=== PATIENT | female | born 2000 | race Caucasian/White ===

== ENCOUNTER 2024-03-12 22:35 | Emergency (ER) | payer BC ==
--- OUTSIDE RECORDS SUMMARY | 2024-03-12 22:39 | XMS REPORT | Continuity of Care Document ---
Author Name Unknown Address [address] [facility] [place] [place] [address] [facility] thconnect Address [address] [facility] [place] [place] [address] Care Team Providers Care Slitter Scorer Cut Off Operator Name Role Phone PCP, PATIENT DOES NOT HAVE A Primary Care Physic fiona Unavailable LESVIA FOLEY Attending Clinician Unavailable Lesvia Foley MD Attending Clinician [phone] Doctor Unassigned, [place] Attending Clinician U Pierre Flores CRNA Attending Clinician [phone] Catalino Browning CRNA Attending Clinician + [phone] Ismael Zamarripa MD Attending Clinician [phone] Ultrasound, Adc Mf Attending Clinician UnavailAureliano Koenig MD Attending Clinician [phone], Adc Lab Attending Clinician Unavailable RADHA HIGHTOWER Attending Clinician Unavailabl e Pcp, Patient Does Not Have A Attending Clinician Lab, Adc Fam Pob I Attending Clinician Unavailab Constance Lewis Attending Clinician [phone] CONSTANCE HARPER Attending Clinician Unavailable LESVIA FOLEY Admitting Clinician Unavailable Lesvia Foley MD Admitting Clinician [phone] Payers Payer Name Policy Type Policy Number Effective Date Expirati on Date Source FORMERLY [facility] [id number] 2021 00:00:00 KASSANDRA ULLOA [id number] 2021-01-0 1 00:00:00 Problems Condition Name Condition Details Condition Category Status Onset Date Resolution Date Last Treatment Date Treating Clinician Comments Source (normal spontaneou s vaginal delivery) (normal spontaneou s vaginal delivery) Disease Active 8-19 00:00: 00 [facility] Labor and delivery, indication for care Labor and delivery, indication for care Disease Active 8-18 00:00: 00 [facility] Uterine contractio ns during Uterine contractio ns during Disease Active 818 00:00: 00 [facility] Labor and delivery, indication for care Labor and delivery, indication for care Disease Active 818 00:00: 00 [facility] Obesity (BMI 30-39.9) Obesity (BMI 30-39.9) Disease Active 7 00:00: 00 [facility] Supervisio n of high-risk with insufficie nt care in third trimester Supervisio n of high-risk with insufficie nt care in third trimester Disease Active 7 00:00: 00 [facility] 37 weeks gestation of 37 weeks gestation of Disease Active 7 00:00: 00 [facility] 31 weeks gestation of 31 weeks gestation of Disease Active 7 00:00: 00 [facility] 33 weeks gestation of 33 weeks gestation of Disease Active 7 00:00: 00 [facility] 36 weeks gestation of 36 weeks gestation of Disease Active 7 00:00: 00 [facility] Allergies, Adverse Reactions, Alerts Allergy Name Allergy Type Status Severity Reaction(s) Onset Date Inactive Date Treating Clinician Comments Source NO KNOWN ALLERGIE S Drug Class Active [facility] Social History Social Habit Start Date Stop Date Quantity Comments Source ASSERTION 2020-07-17 00:00:00 [facility] History of tobacco use Current smoker [facility] Exposure to SARS-CoV-2 (event) 2021-04-25 00:00:00 2021-05-25 13:57:00 Not sure [facility] Alcohol intake 2021-05-25 00:00:00 2021-05-25 00:00:00 Lifetime non-drinker (finding) [facility] History of Social function 2021-05-25 00:00:00 2021-05-25 00:00:00 [facility] Tobacco use and exposure 2021-03-23 00:00:00 2021-03-23 00:00:00 Former smokeless tobacco user [facility] Education 2021-03-23 00:00:00 2021-03-23 00:00:00 11 [facility] Sex Assigned At 2002 00:00:00 2000 00:00:00 [facility] Smoking Status Start Date Stop Date Source Unknown if ever smoked [facility] Ex-smoker 2021-03-23 00:00:00 2021-03-23 00:00:00 [facility] Never smoker [facility] Medications Ordered Medication Name Filled Medication Name Start Date Stop Date Current Medication? Ordering Clinician Indication Dosage Frequency Signature (SIG) Comments Components Source medroxyPROG ESTERone (DEPO-PROVE RA) syringe 150 mg 2020-08 21:30: 00 05-25 21:00 :00 No [id number] 150mg [facility] vit calc,iron,f olic ( VITAMIN ORAL) 04-22 16:22: 27 Yes Take by mouth. [facility] vit calc,iron,f olic ( VITAMIN ORAL) 03-26 03:48: 15 Yes Take by mouth. [facility] ibuprofen 600 mg tablet 03-25 00:00: 00 Yes [id number] 600mg Take 1 tablet by mouth every 6 (six) hours as needed (Pain). Take with food or milk. [facility] ibuprofen (IBU) tablet 600 mg 03-24 20:18: 23 Yes 600mg 600 mg, Oral, Q6HPRN, Starting Sun03/24/21 at 1518, Until Discontinu ed, Routine, Pain (scale 4-6) [facility] acetaminoph en (TYLENOL) tablet 650 mg 03-24 20:18: 23 Yes 650mg 650 mg, Oral, Q6HPRN, Starting Sun03/24/21 at 1518, Until Discontinu ed, Routine, Pain (scale 1-3) [facility] diphenhydrA MINE (BENADRYL) tablet 25 mg 03-24 20:18: 23 Yes 25mg 25 mg, Oral, Q6HPRN, Starting Sun03/24/21 at 1518, Until Discontinu ed, Routine, Sleep, Itching [facility] ondansetron (ZOFRAN (PF)) injection 4 mg 03-24 20:18: 23 Yes 4mg 4 mg, Slow IV Push, Q8HPRN, Starting Sun03/24/21 at 1518, Until Discontinu ed, Routine, Nausea and Vomiting (N/V) [facility] simethicone (GAS RELIEF (SIMETHICON E)) chewable tablet 160 mg 03-24 20:18: 23 Yes 160mg 160 mg, Oral, PC+HSPRN, Starting Sun03/24/21 at 1518, Until Discontinu ed, Routine, Gas [facility] magnesium hydroxide (MILK OF MAGNESIA) 400 mg/5 mL suspension 30 mL 03-24 20:18: 23 Yes 30mL 30 mL, Oral, QDAILYPRN, Starting Sun03/24/21 at 1518, Until Discontinu ed, Routine, Constipati on [facility] benzocaine- menthol (DERMOPLAST ) 20-0.5 % topical spray 03-24 20:18: 22 Yes Topical, PRN, Starting Sun03/24/21 at 1518, Until Discontinu ed, Routine, Perineum discomfort [facility] bupivacaine (preserv free) 0.5% (SENSORCAIN E MPF) 0.5 % (5 mg/mL) injection 03-24 18:30: 00 03-24 21:47 :57 No Epidural, ONCE INTRA PROCEDURE, Starting Cais 03/24/21 at 1330, Until Discontinu ed, Routine, Intra-op [facility] FENTanyl PF (SUBLIMAZE (PF)) injection 03-24 17:08: 00 03-24 21:47 :57 No Epidural, ONCE INTRA PROCEDURE, Starting Casi 03/24/21 at 1208, Until Discontinu ed, Routine, Intra-op [facility] bupivacaine (preserv free) (SENSORCAIN E MPF) 0.25 % (2.5 mg/mL) injection 03-24 17:08: 00 03-24 21:47 :57 No Epidural, ONCE INTRA PROCEDURE, Starting Casi 03/24/21 at 1208, Until Discontinu ed, Routine, Intra-op [facility] FENTanyl 2 mcg/mL + bupivacaine 0.125% in NS 250 mL epidural bag 03-24 13:56: 00 03-24 21:47 :57 No Intra-op [facility] lidocaine-e pinephrine (XYLOCAINE W/EPINEPHRI NE) 1.5 %-1:200,000 injection 03-24 13:54: 00 03-24 21:47 :57 No Intraderma l, ONCE INTRA PROCEDURE, Starting Casi 03/24/21 at 0854, Until Discontinu ed, Routine, Intra-op [facility] lidocaine 1% (XYLOCAINE) 100 mg/10 mL (1 %) injection 03-24 12:53: 00 03-24 21:47 :57 No Infiltrati on, ONCE INTRA PROCEDURE, Starting Casi 03/24/21 at 0753, Until Discontinu ed, Routine, Intra-op [facility] LR 1000 mL + oxytocin 20 units IV Solution 03-24 05:00: 00 03-24 20:20 :01 No 2mU/min at 6-120 mL/hr, IV Infusion, TITRATE, Starting Casi 03/24/21 at 0000, Until Casi 03/24/21 at 1520, TUSHAR [facility] D5W-LR IV infusion 1,000 mL 03-23 21:45: 00 03-24 20:20 :01 No 1000mL at 125 mL/hr, IV Infusion, CONTINUOUS , Starting Sun03/23/21 at 1645, Until Casi 03/24/21 at 1520, Routine [facility] FENTanyl PF (SUBLIMAZE (PF)) injection 100 mcg 03-23 21:42: 20 03-24 20:20 :01 No 100ug 100 mcg, Slow IV Push, Q1HPRN, Starting Sun03/23/21 at 1642, Until Casi 03/24/21 at 1520, Routine, Pain (scale 4-6), Pain (scale 7-10) [facility] lactated ringers IV infusion 500 mL 03-23 21:32: 14 03-24 20:20 :01 No 500mL at 999 mL/hr, 500 mL, IV Infusion, PRN - SEE INSTRUCTIO NS, Starting Sun03/23/21 at 1632, Until Casi 03/24/21 at 1520, Routine [facility] vit calc,iron,f olic ( VITAMIN ORAL) 03-23 21:11: 36 Yes Take by mouth. [facility] vit calc,iron,f olic ( VITAMIN ORAL) 03-23 18:07: 51 Yes Take by mouth. [facility] vit calc,iron,f olic ( VITAMIN ORAL) 02-08 18:35: 00 Yes Take by mouth. [facility] Immunizations Ordered Immunization Name Filled Immunization Name Date Status Comments Source MMR 2021-03-25 00:00:00 Completed [facility] Varicella (varivax)(chicken pox) 2021-03-25 00:00:00 Completed [facility] MMR 2021-03-25 00:00:00 Completed [facility] Varicella (varivax)(chicken pox) 2021-03-25 00:00:00 Completed [facility] MMR 2021-03-25 00:00:00 Completed [facility] Varicella (varivax)(chicken pox) 2021-03-25 00:00:00 Completed [facility] MMR 2021-03-25 00:00:00 Completed [facility] Varicella (varivax)(chicken pox) 2021-03-25 00:00:00 Completed [facility] MMR 2021-03-25 00:00:00 Completed [facility] Varicella (varivax)(chicken pox) 2021-03-25 00:00:00 Completed [facility] MMR 2021-03-25 00:00:00 Completed [facility] Varicella (varivax)(chicken pox) 2021-03-25 00:00:00 Completed [facility] 2021-03-25 00:00:00 Completed [facility] Varicella (varivax)(chicken pox) 2021-03-25 00:00:00 Completed [facility] MMR 2021-03-25 00:00:00 Completed [facility] Varicella (varivax)(chicken pox) 2021-03-25 00:00:00 Completed [facility] MMR 2021-03-25 00:00:00 Completed [facility] Varicella (varivax)(chicken pox) 2021-03-25 00:00:00 Completed [facility] TDAP 2021-02-22 00:00:00 Completed [facility] TDAP 2021-02-22 00:00:00 Completed [facility] TDAP 2021-02-22 00:00:00 Completed [facility] TDAP 2021-02-22 00:00:00 Completed [facility] TDAP 2021-02-22 00:00:00 Completed [facility] TDAP 2021-02-22 00:00:00 Completed [facility] TDAP 2021-02-22 00:00:00 Completed [facility] TDAP 2021-02-22 00:00:00 Completed [facility] TDAP 2021-02-22 00:00:00 Completed [facility] TDAP 2021-02-22 00:00:00 Completed [facility] TDAP 2021-02-22 00:00:00 Completed [facility] TDAP 2021-02-22 00:00:00 Completed [facility] TDAP 2021-02-22 00:00:00 Completed [facility] TDAP 2021-02-22 00:00:00 Completed [facility] TDAP 2021-02-22 00:00:00 Completed [facility] TDAP 2021-02-22 00:00:00 Completed [facility] TDAP 2021-02-22 00:00:00 Completed [facility] TDAP Unknown Completed [facility] MMR Unknown Completed [facility] Varicella (varivax)(chicken pox) Unknown Completed [facility] Vital Signs Vital Name Observation Time Observation Value Comments S ource Systolic blood pressure 2021-05-25 19:47:00 107 mm[Hg] [facility] Diastolic blood pressure 2021-05-25 19:47:00 69 mm[Hg] [facility] Heart rate 2021-05-25 19:47:00 84 /[facility] Body temperature 2021-05-25 19:47:00 36.78 Jenni [facility] Respiratory rate 2021-05-25 19:47:00 18 /min [facility] Body height 2021-05-25 19:47:00 160 cm [facility] Body weight 2021-05-25 19:47:00 85.276 kg [facility] BMI 2021-05-25 19:47:00 33.30 kg/m2 [facility] Body mass index (BMI) [Percentile] Per age and sex 2021-05-25 19:47:00 96.73 % [facility] Systolic blood pressure 2021-04-22 21:23:00 103 mm[Hg] [facility] Diastolic blood pressure 2021-04-22 21:23:00 69 mm[Hg] [facility] Heart rate 2021-04-22 21:23:00 103 /min Unive [facility] Body temperature 2021-04-22 21:23:00 36.83 Jenni [facility] Respiratory rate 2021-04-22 21:23:00 16 /min [facility] Body height 2021-04-22 21:23:00 160 cm [facility] Body weight 2021-04-22 21:23:00 82.192 kg [facility] BMI 2021-04-22 21:23:00 32.10 kg/m2 [facility] Body mass index (BMI) [Percentile] Per age and sex 2021-04-22 21:23:00 96.04 % [facility] Systolic blood pressure 2021-03-25 16:18:00 115 mm[Hg] [facility] Diastolic blood pressure 2021-03-25 16:18:00 64 mm[Hg] [facility] Heart rate 2021-03-25 16:18:00 77 /min [facility] Body temperature 2021-03-25 16:18:00 36.39 Jenni [facility] Respiratory rate 2021-03-25 16:18:00 16 /min [facility] Oxygen saturation in Arterial blood by Pulse oximetry 2021-03-25 16:18:00 99 /min [facility] Body height 2021-03-23 22:05:00 160 cm [facility] Body weight 2021-03-23 22:05:00 80.287 kg [facility] BMI 2021-03-23 22:05:00 31.35 kg/m2 [facility] Heart rate 2021-03-23 17:30:00 111 /min [facility] Oxygen saturation in Arterial blood by Pulse oximetry 2021-03-23 17:30:00 98 /min [facility] Respiratory rate 2021-03-23 16:15:00 18 /min [facility] Systolic blood pressure 2021-03-23 14:09:00 111 mm[Hg] [facility] Diastolic blood pressure 2021-03-23 14:09:00 68 mm[Hg] [facility] Body temperature 2021-03-23 14:09:00 36.67 Jenni [facility] Body height 2021-03-23 14:09:00 160 cm [facility] Body weight 2021-03-23 14:09:00 82.101 kg [facility] BMI 2021-03-23 14:09:00 32.06 kg/m2 [facility] Systolic blood pressure 2021-03-17 20:21:00 101 mm[Hg] [facility] Diastolic blood pressure 2021-03-17 20:21:00 66 mm[Hg] [facility] Heart rate 2021-03-17 20:21:00 97 /min Unive [facility] Body temperature 2021-03-17 20:21:00 36.83 Jenni [facility] Respiratory rate 2021-03-17 20:21:00 18 /min [facility] Body height 2021-03-17 20:21:00 160 cm [facility] Body weight 2021-03-17 20:21:00 82.192 kg [facility] BMI 2021-03-17 20:21:00 32.10 kg/m2 [facility] Systolic blood pressure 2021-02-22 13:30:00 110 mm[Hg] [facility] Diastolic blood pressure 2021-02-22 13:30:00 65 mm[Hg] [facility] Heart rate 2021-02-22 13:30:00 83 /min Unive [facility] Body temperature 2021-02-22 13:30:00 36.33 Jenni [facility] Respiratory rate 2021-02-22 13:30:00 16 /min [facility] Body height 2021-02-22 13:30:00 160 cm [facility] Body weight 2021-02-22 13:30:00 82.283 kg [facility] BMI 2021-02-22 13:30:00 32.13 kg/m2 [facility] Systolic blood pressure 2021-02-08 18:24:00 115 mm[Hg] [facility] Diastolic blood pressure 2021-02-08 18:24:00 67 mm[Hg] [facility] Heart rate 2021-02-08 18:24:00 82 /min Unive [facility] Body temperature 2021-02-08 18:24:00 36.72 Jenni [facility] Respiratory rate 2021-02-08 18:24:00 18 /min [facility] Body height 2021-02-08 18:24:00 160 cm [facility] Body weight 2021-02-08 18:24:00 80.287 kg [facility] BMI 2021-02-08 18:24:00 31.35 kg/m2 [facility] Procedures Procedure Date / Time Performed Performing Clinician Source CONSENT FOR CONTRACEPTION 2021-05-25 05:01:00 Doctor Unassigned, [place] [facility] POCT TEST 2021-05-25 00:00:00 Adum, Lesvia Lima [facility] DME/SUPPLY JUSTIFICATION 2021-04-07 05:01:00 Doc tor Unassigned, [place] [facility] CBC WITH DIFF 2021-03-25 08:52:00 Adum, Lesvia Arango [facility] CENTRAL NEURAXIAL BLOCK 2021-03-24 14:27:56 Catalino Browning [facility] CBC WITH DIFF 2021-03-23 21:54:00 [facility] HEPATITIS B SURFACE ANTIGEN 2021-03-23 21:54:00 Adum, Lesvia Lima [facility] ADC OR MELINDA ONLY - RPR 2021-03-23 21:54:00 Adum, Lesvia Lima [facility] HIV 1/2 AG-AB WITH REFLEX 2021-03-23 21:54:00 Adum, Lesvia Lima [facility] HB ABO GROUPING 2021-03-23 21:50:00 [facility]um, [facility] ([facility] NOW RAPID TEST[facility]) 2021-03-23 15:14:00 Adum, Lesvia Lima [facility] NOTICE OF PRIVACY PRACTICES 2021-03-23 14:00:37 Doctor Unassigned, [place] [facility] CONSENT/REFUSAL FOR DIAGNOSIS AND TREATMENT 2021-03-23 13:56:26 Doctor Unassigned, [place] [facility] POCT URINALYSIS W/O SPECIFIC GRAVITY 2021-03-17 20:25:00 Lesvia Foley [facility] DSU PRE-OP 2021-03-17 05:01:00 Doctor Unass igned, [place] [facility] POCT URINALYSIS W/O SPECIFIC GRAVITY 2021-02-22 13:30:00 Lesvia Foley [facility] TDAP VACCINE, >11 YRS, IM 2021-02-22 13:29:54 Lesvia Foley [facility] EXTERNAL PROVIDER RECORDS 2021-02-22 05:01:00 Doctor Unassigned, [place] [facility] ASSIGNMENT OF BENEFITS 2021-02-08 18:07:34 Docto r Unassigned, [place] [facility] POCT URINALYSIS W/O SPECIFIC GRAVITY 2021-02-08 00:00:00 Lesvia Foley [facility] Encounters Start Date/Time End Date/Time Encounter Type Admission Type Attending [facility] Care Department Encounter ID Source 2021-06-06 16:27:51 Outpatient X [facility] JAQUELINE [id number] [facility] 2021-06-06 16:21:14 Emergency [facility] [id number] [facility] 2024-04-01 08:00:00 2024-04-01 08:00:00 Outpatient R LESVIA FOLEY [facility] [id number] [facility] 2021-08-18 15:00:00 2021-08-18 15:00:00 Outpatient R [facility] [id number] [facility] 2021-08-17 15:00:00 2021-08-17 15:00:00 Outpatient R [facility] [id number] [facility] 2021-06-16 00:00:00 2021-06-16 00:00:00 Patient Secure Msg Lesvia Foley [facility] [id number] 350.1.13.10 4.2.7.2.686 [id number] [facility] 2021-05-25 13:57:39 2021-05-25 15:35:28 Routine Visit Adum, Lesvia Lima [facility] 1.20.114 350.1.13.10 4.2.7.2.686 [id number] [facility] 2021-05-25 14:15:00 2021-05-25 14:15:00 Outpatient R ADUM, LESVIA [facility] [id number] [facility] 2021-05-25 00:00:00 2021-05-25 00:00:00 Orders Only Doctor Unassigned, [place] [facility] 1.20.114 350.1.13.10 4.2.7.2.686 [id number] [facility] 2021-04-22 16:08:32 2021-04-22 16:38:27 Routine Visit Adum, Lesvia Lima [facility] 1.2.114 350.1.13.10 4.2.7.2.686 [id number] [facility] 2021-04-22 16:15:00 2021-04-22 16:15:00 Outpatient R ADUM, [facility] [id number] [facility] 2021-04-20 14:15:00 2021-04-20 14:15:00 Outpatient R ADUM, [facility] [id number] [facility] 2021-04-07 00:00:00 2021-04-07 00:00:00 Orders Only Doctor Unassigned, [place] [facility] 1.2.114 350.1.13.10 4.2.7.2.686 [id number] [facility] 2021-04-07 00:00:00 2021-04-07 00:00:00 [facility] 1.[facility].114 350.1.13.10 4.2.7.2.686 [id number] [facility] 2021-03-23 16:10:00 2021-03-25 19:40:00 Hospital Encounter Lesvia Foley [facility] [id number] 350.1.13.10 4.2.7.2.686 [id number] [facility] 2021-03-25 14:15:00 2021-03-25 14:15:00 Outpatient R LIZBETH [facility] [id number] [facility] 2021-03-24 20:02:20 2021-03-24 20:02:20 Anesthesia Event Pierre Hernández [facility] [id number] 350.1.13.10 4.2.7.2.686 [id number] [facility] 2021-03-24 07:51:00 2021-03-24 16:47:00 Anesthesia Event Catalino BrowningIsmael [facility] [id number] 350.1.13.10 4.2.7.2.686 [id number] [facility] 2021-03-23 09:01:00 2021-03-23 12:40:[address] [facility] [id number] 350.1.13.10 4.2.7.2.686 [id number] [facility] 2021-03-17 14:10:17 2021-03-17 16:00:49 Routine Visit Adsonali Lesvia [facility] 1.2.840.114 350.1.13.10 4.2.7.2.686 [id number] [facility] 2021-03-17 14:15:00 2021-03-17 14:15:00 Outpatient R LIZBETH [facility] [id number] [facility] 2021-03-17 00:00:00 2021-03-17 00:00:00 Orders Only Doctor Unassigned, [place] [facility] 1.840.114 350.1.13.10 4.2.7.2.686 [id number] [facility] 2021-03-10 15:17:09 2021-03-10 16:17:09 Finisher Operator Visit Ultrasound, Adc MfAureliano Stewart [facility] 1.840.114 350.1.13.10 4.2.7.2.686 [id number] [facility] 2021-03-10 14:30:00 2021-03-10 14:30:00 Outpatient P [facility] [id number] [facility] 2021-03-08 16:15:00 2021-03-08 16:15:00 Outpatient R ADLESVIA HERNANDEZ [facility] [id number] [facility] 2021-02-22 08:16:06 2021-02-22 08:51:56 Routine Visit Lesvia Foley [facility] Building 1..840.114 350.1.13.10 4.2.7.2.686 [id number] [facility] 2021-02-22 08:45:00 2021-02-22 08:45:00 Outpatient R ADLESVIA HERNANDEZ [facility] [id number] [facility] 2021-02-22 00:00:00 2021-02-22 00:00:00 Orders Only Doctor Unassigned, [place] [facility] 1.840.114 350.1.13.10 4.2.7.2.686 [id number] [facility] 2021-02-16 00:00:00 2021-02-16 00:00:00 Case Management AdLesvia hernandez [facility] 1.2.840.114 350.1.13.10 4.2.7.2.686 [id number] [facility] 2021-02-10 09:00:00 2021-02-10 09:00:00 Outpatient R ADUM, LESVIA [facility] [id number] [facility] 2021-02-08 14:16:18 2021-02-08 14:31:18 Finisher Operator Visit 2, Adc Lab Adum, Lesvia Lima [facility] 1.2.840.114 350.1.13.10 4.2.7.2.686 [id number] [facility] 2021-02-08 14:15:00 2021-02-08 14:15:00 Outpatient R ADUM, LESVIA [facility] [facility] [id number] [facility] 2021-02-08 13:08:24 2021-02-08 14:05:35 Initial Visit Adum, Lesvia Lima [facility] [id number] [facility] 2021-02-08 13:30:00 2021-02-08 13:30:00 Outpatient R ADUM, LESVIA [facility] [id number] [facility] 2021-02-08 13:30:00 2021-02-08 13:30:00 Outpatient R ADUM, [facility] [id number] [facility] 2021-02-08 00:00:00 2021-02-08 00:00:00 Orders Only Doctor Unassigned, [place] [facility] [id number] [facility] 2021-02-02 09:30:00 2021-02-02 09:30:00 Outpatient R ADUM, [facility] [id number] [facility] 2020-12-28 14:30:00 2020-12-28 14:30:00 Outpatient R RADHA HIGHTOWER [facility] [id number] [facility] 2020-11-29 14:00:00 2020-11-29 14:00:00 Outpatient R [facility] [id number] [facility] 2020-05-03 00:00:00 2020-05-03 00:00:00 Letter (Out) Pcp, Patient Does Not Have A [facility] .840.114 [id number] [id number] [facility] 2020-04-28 11:29:35 2020-04-28 11:49:35 Laboratory Only Lab, Adc Fam Pob I Constance Harper [facility] .840.114 [id number] [id number] [id number] [facility] 2020-04-28 11:20:00 2020-04-28 11:20:00 Outpatient R CONSTANCE HARPER [facility] [id number] [facility] Results Test Description Test Time Test Comments Results Result Co mments Source [facility] with [id number] 10:18:55* Test Item Value Reference Range Interpretation Comme nts WBC (test code = 6690-2) See_Comment H [Automated message] The system which generated this result transmitted reference range: 4.50 - 13.50 10*3/?L. The reference range was not used to interpret this result as normal/abnormal. RBC (test code = 789-8) See_Comment L [Automated message] The system which generated this result transmitted reference range: 4.10 - 5.10 10*6/?L. The reference range was not used to interpret this result as normal/abnormal. HGB (test code = 718-7) 10.8 g/dL 12.0-16.0 L HCT (test code = 4544-3) 32.8 % 36.0-45.0 L MCV (test code = 787-2) 83.2 fL 78.0-95.0 MCH (test code = 785-6) 27.4 pg 26.0-32.0 MCHC (test code = 786-4) 32.9 g/dL 32.0-36.0 RDW-SD (test code = 22810-6) 38.1 fL 38.5-49.0 L RDW-CV (test code = 788-0) 12.5 % 11.5-14.0 PLT (test code = 777-3) See_Comment [Automated message] The system which generated this result transmitted reference range: 135 - 361 10*3/?L. The reference range was not used to interpret this result as normal/abnormal. MPV (test code = 71668-3) 11.1 fL 9.4-13.3 NRBC/100 WBC (test code = 4273773978) See_Comment [Automated message] The system which generated this result transmitted reference range: 0.0 - 10.0 /100 WBCs. The reference range was not used to interpret this result as normal/abnormal. NRBC x10^3 (test code = 1651289099) <0.01 See_Comment [Automated message] The system which generated this result transmitted reference range: 10*3/?L. The reference range was not used to interpret this result as normal/abnormal. GRAN MAT (NEUT) % (test code = 770-8) 77.6 % IMM GRAN % (test code = 0962950277) 0.70 % LYMPH % (test code = 736-9) 12.5 % MONO % (test code = 5905-5) 8.1 % EOS % (test code = 713-8) 0.8 % BASO % (test code = 706-2) 0.3 % GRAN MAT x10^3(ANC) (test code = 6530616376) 10.96 10*3/uL 1.50-10.30 H IMM GRAN x10^3 (test code = 8220045062) 0.10 10*3/uL 0.00-0.06 H LYMPH x10^3 (test code = 731-0) 1.77 10*3/uL 0.70-7.40 MONO x10^3 (test code = 742-7) 1.14 10*3/uL 0.00-0.50 H EOS x10^3 (test code = 711-2) 0.12 10*3/uL 0.00-0.40 BASO x10^3 (test code = 704-7) 0.04 10*3/uL 0.00-0.10 Lab Interpretation (test code = 99951-0) Abnormal [facility] [id number] 14:27:56 Catalino Browning CRNA ? ? 03/24/2021 ?9:32 AM Central Neuraxial Block Performed by: Catalino Browning CRNAAuthorized by: Ismael Zamarripa MD Patient Location: OBStart Time: 03/24/2021 7:53 AMReason for Block: OB request, Patient request and Labor analgesiaStaff: ?Anesthesiologist: Ismael Zamarripa MD ?Resident/PROPERTY MAN: Catalino Browning CRNA ?Performed by: resident/PROPERTY MAN and anesthesiologistPreanesthetic Checklist: patient identified, IV checked, risks and benefits explained, monitors and equipmentchecked, timeout performed, ob surgical consent/approval, pre-op evaluation, surgical consent, sitemarked and anesthesia consentProcedure: ?Type of Neuraxial: Epidural ?Patient Position: sitting ?Prep: Betadine ? ?Monitoring: heart rate, continuous pulse ox and NIBP ?Location: lumbar (1-5) ?Lumbar: L2-L3 ?Approach: midline ? ?Technique: SERGE salineEpidural/Spinal Monument and/or Catheter: ?Epidural/Spinal Kit: BBraun ?Needle Type: Tuohy ?Needle Gauge: 17 G ?Needle Length: 3.5 in (8.89 cm) ?Needle Insertion Depth: 6 ?Catheter Type: side hole ? ?Catheter Size: 19 G ? ?Catheter at Skin Depth: 11 ?Number of Attempts: 4 ?Test Dose: lidocaine 1.5% with epinephrine 1-to-200,000 ? ?Dose: 3 cc ? ?Catheter Securement Method: Tegaderm and surgical tapeAssessment: ?Sensory Level: below T10 ?Block Outcome: pain improved ? ?Procedure Assessment: patient tolerated procedure well with no complicationsUnThe [facility] CampusHepatitis B Surface Antigen 2021-03-24 08:01:00* Test Item Value Reference Range Interpretation Comme nts HBsAg Semi-Quantitative (silvana t code = 5195-3) Negative Negative [facility]DA ONLY - [id number] 07:54:52* Test Item Value Reference Range Interpretation Comme nts RPR (Qualitative) (test code = 61622-6) Nonreactive Nonreactive Lab Interpretation (test cod e = 06381-5) Normal [facility]/2 AG-AB WITH [id number] 04:41:45* Test Item Value Reference Range Interpretation Comme nts HIV Semi-quantitative (test code = 58518-7) Negative Negative SHERMAN (test code = SHERMAN) Non-reactive for HIV-1 antigen and HIV-1/HIV-2 antibodies. ?No laboratory evidence of HIV infection. ?Repeat in 2-4 weeks if acute HIV infection is suspected. [facility] and Screen - ONCE [id number] 23:53:22 * Test Item Value Reference Range Interpretation Comme nts ABO & RH (test code = 20) B Positive Performed at [facility] Laboratory [facility] Blood [address] [place] [address] Free: [phone] No. [id number] IAT (test code = 1185) Negative Performed at [facility] Laboratory [facility] Blood [address] [place], [place] [address]Toll Free: [phone] No. [id number] [facility] with [id number] 22:39:59* Test Item Value Reference Range Interpretation Comme nts WBC (test code = 6690-2) See_Comment [Automated messa ge] The system which generated this result transmitted reference range: 4.50 - 13.50 10*3/?L. The reference range was not used to interpret this result as normal/abnormal. RBC (test code = 789-8) See_Comment [Automated messa ge] The system which generated this result transmitted reference range: 4.10 - 5.10 10*6/?L. The reference range was not used to interpret this result as normal/abnormal. HGB (test code = 718-7) 12.3 g/dL 12.0-16.0 HCT (test code = 4544-3) 36.6 % 36.0-45.0 MCV (test code = 787-2) 83.2 fL 78.0-95.0 MCH (test code = 785-6) 28.0 pg 26.0-32.0 MCHC (test code = 786-4) 33.6 g/dL 32.0-36.0 RDW-SD (test code = 31111-9) 38.4 fL 38.5-49.0 L RDW-CV (test code = 788-0) 12.6 % 11.5-14.0 PLT (test code = 777-3) See_Comment [Automated messa ge] The system which generated this result transmitted reference range: 135 - 361 10*3/?L. The reference range was not used to interpret this result as normal/abnormal. MPV (test code = 46534-8) 11.0 fL 9.4-13.3 NRBC/100 WBC (test code = 4515510361) See_Comment [Automated [employer] ssage] The system which generated this result transmitted reference range: 0.0 - 10.0 /100 WBCs. The reference range was not used to interpret this result as normal/abnormal. NRBC x10^3 (test code = 1248490671) <0.01 See_Comment [Automated [employer] ge] The system which generated this result transmitted reference range: 10*3/?L. The reference range was not used to interpret this result as normal/abnormal. GRAN MAT (NEUT) % (test code = 770-8) 80.9 % IMM GRAN % (test code = 0756739198) 0.50 % LYMPH % (test code = 736-9) 11.2 % MONO % (test code = 5905-5) 6.4 % EOS % (test code = 713-8) 0.7 % BASO % (test code = 706-2) 0.3 % GRAN MAT x10^3(ANC) (test code = 7529552011) 9.59 10*3/uL 1.50-10.30 IMM GRAN x10^3 (test code = 0026132872) 0.06 10*3/uL 0.00-0.06 LYMPH x10^3 (test code = 731-0) 1.33 10*3/uL 0.70-7.40 MONO x10^3 (test code = 742-7) 0.76 10*3/uL 0.00-0.50 H EOS x10^3 (test code = 711-2) 0.08 10*3/uL 0.00-0.40 BASO x10^3 (test code = 704-7) 0.03 10*3/uL 0.00-0.10 Lab Interpretation (test code = 44990-6) Abnormal [facility] (ID NOW RAPID TESTING)2021-03-23 15:49:48* Test Item Value Reference Range Interpretation Comme nts SARS-CoV-2 Rapid ID NOW (test code = 49033-9) Not Detected Not Detected SHERMAN (test code = SHERMAN) ID NOW COVID-19 As say is an isothermal nucleic acid amplification test intended for the qualitative detection of nucleic acid from SARS-CoV-2 viral RNA in nasopharyngeal (PATROL MAN) specimens. It is used under Emergency Use Authorization (EUA) by FDA. The limit of detection (LOD) of the assay is 125 Genome Equivalents/mL. A positive result is indicative of the presence of SARS-CoV-2 RNA. ?Clinical correlation with patient history and other diagnostic information is necessary to determine patient infection status. A negative (Not Detected) result does not preclude SARS-CoV-2 infection. In patients with clinical symptoms and other tests that are consistent with SARS-CoV-2 infection, negative results should be treated as presumptive negative and a new specimen should be tested with alternative PCR molecular test. Invalid: Please collect a new specimen for repeat patient testing if clinically indicated. Lab Interpretation (test code = 56118-3) Normal [facility] W/O SPECIFIC [id number] 20:25:00* Test Item Value Reference Range Interpretation Comme nts POCT PH U (test code = 3254) NEG 5-8 POCT U LEUK EST (test code = 3263) NEG Negative - N egative POCT U NIT (test code = 3262) NEG Negative - Negati ve POCT U PROT (test code = 3259) NEG Negative - Negat alexis POCT U GLU (test code = 3256) NEG Negative - Negati ve POCT U KETONE (test code = 3258) NEG Negative - Neg ative POCT U BLD (test code = 3257) NEG Negative - Negati ve Lab Interpretation (test cod e = 58352-2) Normal [facility] URINALYSIS W/O SPECIFIC [id number] 13:30:00* Test Item Value Reference Range Interpretation Comme nts POCT PH U (test code = 3254) n/a 5-8 POCT U LEUK EST (test code = 3263) n/a Negative - N egative POCT U NIT (test code = 3262) n/a Negative - Negati ve POCT U PROT (test code = 3259) neg Negative - Negat alexis POCT U GLU (test code = 3256) neg Negative - Negati ve POCT U KETONE (test code = 3258) n/a Negative - Neg ative POCT U BLD (test code = 3257) n/a Negative - Negati ve [facility] URINALYSIS W/O SPECIFIC [id number] 18:35:00* Test Item Value Reference Range Interpretation Comme nts POCT PH U (test code = 3254) N/A 5-8 POCT U LEUK EST (test code = 3263) N/A Negative - Negative POCT U NIT (test code = 3262) N/A Negative - Negati ve POCT U PROT (test code = 3259) Negative Negative - Negat alexis POCT U GLU (test code = 3256) Negative Negative - Negati ve POCT U KETONE (test code = 3258) N/A Negative - Neg ative POCT U BLD (test code = 3257) N/A Negative - Negati ve [facility] URINALYSIS W/O SPECIFIC [id number] 18:35:00* Test Item Value Reference Range Interpretation Comme nts POCT PH U (test code = 3254) N/A 5-8 POCT U LEUK EST (test code = 3263) N/A Negative - Negative POCT U NIT (test code = 3262) N/A Negative - Negati ve POCT U PROT (test code = 3259) Negative Negative - Negat alexis POCT U GLU (test code = 3253) Negative Negative - Negati ve POCT U KETONE (test code = 3258) N/A Negative - Neg ative POCT U BLD (test code = 3257) N/A Negative - Negati ve [facility]
[2024-03-12] MEDS ORDERED: ONDANSETRON 4 MG (ODT) TAB ONE (22:58)
[2024-03-12] MEDS ORDERED: IBUPROFEN 400 MG TAB ONE ×2 (22:58→22:59)
[2024-03-12] MEDS ORDERED: IBUPROFEN 200 MG TAB PO ONE (22:58)
[2024-03-12 23:35] LABS: SARS-CoV-2 Antigen CONTROL BLUE LINE VIS/BG OK; SARS-CoV-2 Antigen Rapid Res Negative (Negative)
[2024-03-13 00:27] LABS: Specific Gravity > 1.030 (1.005-1.030); Urine Bacteria >50 /HPF (<20); Urine Bilirubin NEGATIVE (Negative); Urine Blood Trace (Negative); Urine Clarity Extremely Turbid (Clear); Urine Color Yellow (Yellow); Urine Culture Reflex Order REFLEXED; Urine Glucose NEGATIVE (Negative); Urine Ketones 4+ (Negative); Urine Microscopic Reflex YN ORDER UMIC; Urine Mucus Slight /HPF (None Seen); Urine Nitrite NEGATIVE (Negative); Urine Protein 1+ (Negative); Urine RBC 21-50 /HPF (None Seen); Urine Urobilinogen 1+ (Normal); Urine WBC 20-50 /HPF (<5)
--- NOTE | 2024-03-13 00:31 | EDPHYS ---
Physician Documentation [facility] Name: Viridiana Navarrete Age: 23 yrs Sex: Female : 2000 Arrival Date: 03/12/2024 Time: 22:35 Bed 20 Private MD: ED Physician Kesha Ruiz HPI: 03/12 23:12 This 23 yrs old Female presents to ER via Ambulatory with complaints of Cough, kb Congestion, Flu Symptoms. 23:12 Pt is a 23 year old female who presents for cough, congestion, n/v/d, bodyaches, kb fatigue and malaise for 4 days. Denies fever. Historical: - Allergies: 22:49 No Known Allergies; cm10 - Home Meds: 22:49 None [Active]; cm10 - PMHx: 22:49 None; cm10 - PSHx: 22:49 None; cm10 - Immunization history:: Adult Immunizations up to date. - Infectious Disease History:: Denies. - Social history:: Smoking status: unknown. ROS: 23:11 Constitutional: As per HPI kb Exam: 23:11 Constitutional: This is a well developed, well nourished patient who is awake, alert, kb and in no acute distress. Head/Face: Normocephalic, atraumatic. Cardiovascular: Regular rate Respiratory: Respirations even and unlabored. No increased work of breathing. Talking in full sentences Abdomen/GI: Soft, non-tender. No distention Skin: Warm, dry with normal turgor. Normal color. MS/ Extremity: Pulses equal, no cyanosis. Neurovascular intact. Full, normal range of motion. Neuro: Awake and alert, GCS 15, oriented to person, place, time, and situation. Moves all extremities. Normal gait. 23:11 ENT: Posterior pharynx: Tonsils: bilaterally enlarged, with erythema, swelling, that is mild, erythema, that is moderate, Vital Signs: 22:47 BP 135 / 86; Pulse 109; Resp 18; Temp 99.6(O); Pulse Ox 99% on R/A; Weight 86.18 kg; cm10 Height 5 ft. 3 in. ; Pain 8/10; 03/13 00:49 BP 111 / 65; Pulse 99; Resp 19; Temp 97.3(TE); Pulse Ox 96% on R/A; Pain 2/10; tm6 03/12 22:47 Body Mass Index 33.66 (86.18 kg, 160.02 cm) cm10 03/12 22:47 Pain Scale: Adult cm10 03/13 00:49 Pain Scale: Adult tm6 MDM: 03/12 22:41 Patient medically screened. kb 23:11 Differential Diagnosis: Other flu, covid, uri, strep, viral gastroenteritis. Data kb reviewed: vital signs, nurses notes. 23:52 I considered the following discharge prescriptions or medication management in the emergency department I discussed and recommended Over The Counter medications, Antivirals: At this time, antivirals are not recommended. Counseling: I had a detailed discussion with the patient and/or guardian regarding the historical points, exam findings, and any diagnostic results supporting the discharge/admit diagnosis, lab results, the need for outpatient follow up, a family practitioner, to return to the emergency department if symptoms worsen or persist or if there are any questions or concerns that arise at home. 23:56 Test considered but Not performed: Labs: cbc, cmp considered, but pt has no abd pain or kb tenderness. . CT: ct abd considered but pt has no abd tenderness. . 03/12 22:42 Order name: Flu; Complete Time: 23:36 kb 03/12 22:42 Order name: Strep; Complete Time: 23:36 kb 03/12 22:42 Order name: SARS-COV-2 Antigen Rapid; Complete Time: 23:36 kb 03/12 23:37 Order name: Throat Culture [facility] 03/12 23:55 Order name: Urinalysis w/ reflexes; Complete Time: 00:29 kb 03/12 23:55 Order name: Test, Urine; Complete Time: 00:29 kb 03/13 00:30 Order name: Urine Culture [facility] 03/12 23:36 Order name: PO challenge; Complete Time: 00:07 kb Administered Medications: 23:07 Drug: Ondansetron PO 4 mg PO once Route: PO; tm6 23:07 Drug: Ibuprofen PO 600 mg PO once Route: PO; tm6 03/13 00:49 Drug: Amoxicillin-Clavulanate PO 875 mg PO once Route: PO; tm6 Disposition Summary: 03/13/24 00:30 Discharge Ordered Notes: Location: Home kb Condition: Stable kb Diagnosis - Viral infection, unspecified kb - UTI/ Urinary tract infection, site not specified kb Followup: kb - With: Emergency Department - When: As needed - Reason: Worsening of condition Followup: kb - With: Private Physician - When: 2 - 3 days - Reason: Recheck today's complaints, Continuance of care, Re-evaluation by your physician Discharge Instructions: - Discharge Summary Sheet kb - Viral Gastroenteritis, Adult, Itzd-pj-Ufvx kb - Urinary Tract Infection, Adult, Azoa-xo-Gmcb kb - Viral Respiratory Infection, Rzsr-Oq-Khok kb - Viral Illness, Adult kb Forms: - Medication Reconciliation Form kb - Antibiotic Education kb - Prescription Opioid Use kb - Patient Portal Instructions kb - Leadership Thank You Letter kb Prescriptions: - ondansetron 4 mg Oral Tablet,disintegrating - take 1 tablet ORAL route every 6 hours As needed; 12 tablet; Refills: 0, kb Product Selection Permitted - Augmentin 875-125 mg Oral Tablet - take 1 tablet ORAL route every 12 hours for 10 days; 20 tablet; Refills: 0, kb Product Selection Permitted Signatures: Dispatcher [employer] EDCA Frances Torres, BIOLOGICAL PHOTOGRAPHER-C SANCHO-Ivette Khan, RN RN cm10 Tahira Smith RN RN tm6 Corrections: (The following items were deleted from the chart) 00:30 08/07 23:52 I considered the following discharge prescriptions or medication management kb in the emergency department I discussed and recommended Over The Counter medications, Antibiotics: At this time antibiotics are not recommended, Antivirals: At this time, antivirals are not recommended, kb
--- NOTE | 2024-03-13 00:31 | ER ---
Nurse's Notes [facility] Name: Viridiana Navarrete Age: 23 yrs Sex: Female : 2000 Arrival Date: 03/12/2024 Time: 22:35 Bed 20 Private MD: Diagnosis: Viral infection, unspecified;UTI/ Urinary tract infection, site not specified Presentation: 03/12 22:47 Chief complaint: Patient states: Cough, congestion, body aches, nausea, vomiting and cm10 diarrhea onset Sunday. Pt reports taking OTC meds with no relief. Coronavirus screen: Client denies travel out of the [place] in the last 14 days. Ebola Screen: Patient denies travel to an Ebola-affected area in the 21 days before illness onset. No symptoms or risks identified at this time. Initial Sepsis Screen: Does the patient meet any 2 criteria? HR > 90 bpm. Does the patient have a suspected source of infection? No. Patient's initial sepsis screen is negative. Risk Assessment: Do you want to hurt yourself or someone else? Patient reports no desire to harm self or others. Onset of symptoms was March 09, 2024. 22:47 Method Of Arrival: Ambulatory cm10 22:47 Acuity: AMBROSIO 3 cm10 Triage Assessment: 22:49 General: Appears in no apparent distress. uncomfortable, Behavior is calm, cooperative. cm10 Neuro: No deficits noted. Level of Consciousness is awake, alert, obeys commands, Oriented to person, place, time, situation, Appropriate for age. Respiratory: No deficits noted. Airway is patent Respiratory effort is even, unlabored, Respiratory pattern is regular, symmetrical. Historical: - Allergies: 22:49 No Known Allergies; cm10 - Home Meds: 22:49 None [Active]; cm10 - PMHx: 22:49 None; cm10 - PSHx: 22:49 None; cm10 - Immunization history:: Adult Immunizations up to date. - Infectious Disease History:: Denies. - Social history:: Smoking status: unknown. Screenin:07 [facility] ED Fall Risk Assessment (Adult) History of falling in the last 3 months, tm6 including since admission No falls in past 3 months (0 pts) Confusion or Disorientation No (0 pts) Intoxicated or Sedated No (0 pts) Impaired Gait No (0 pts) Mobility Assist Device Used No (0 pt) Altered Elimination No (0 pt) Score/Fall Risk Level 0 - 2 = Low Risk Oriented to surroundings, Maintained a safe environment, Educated pt \T\ family on fall prevention, incl call for assistance when getting out of bed. Abuse screen: Denies threats or abuse. Denies injuries from another. Nutritional screening: No deficits noted. Tuberculosis screening: No symptoms or risk factors identified. Assessment: 23:07 General: Appears uncomfortable, Behavior is calm, cooperative. Pain: Complains of pain tm6 in body aches Pain does not radiate. Pain currently is 4 out of 10 on a pain scale. Quality of pain is described as aching, Pain began 1 day ago. Neuro: Level of Consciousness is awake, alert, obeys commands, Oriented to person, place, time, situation. Cardiovascular: No deficits noted. Patient's skin is warm and dry. Respiratory: Reports cough that is non-productive, Airway is patent Respiratory effort is even, unlabored, Respiratory pattern is regular, symmetrical, Breath sounds are clear. GI: Abdomen is round non-distended, Reports nausea, vomiting. : No signs and/or symptoms were reported regarding the genitourinary system. EENT: Throat is reddened has enlarged tonsils on right Reports difficulty swallowing nasal congestion pain in throat. Derm: No signs and/or symptoms reported regarding the dermatologic system. Musculoskeletal: No signs and/or symptoms reported regarding the musculoskeletal system. 03/13 00:23 Reassessment: Patient appears in no apparent distress at this time. Patient and/or tm6 family updated on plan of care and expected duration. Pain level reassessed. Patient is alert, oriented x 3, equal unlabored respirations, skin warm/dry/pink. Vital Signs: 03/12 22:47 BP 135 / 86; Pulse 109; Resp 18; Temp 99.6(O); Pulse Ox 99% on R/A; Weight 86.18 kg; cm10 Height 5 ft. 3 in. ; Pain 8/10; 03/13 00:49 BP 111 / 65; Pulse 99; Resp 19; Temp 97.3(TE); Pulse Ox 96% on R/A; Pain 2/10; tm6 03/12 22:47 Body Mass Index 33.66 (86.18 kg, 160.02 cm) cm10 03/12 22:47 Pain Scale: Adult cm10 03/13 00:49 Pain Scale: Adult tm6 ED Course: 03/12 22:40 Patient arrived in ED. gm2 22:41 Frances Torres [facility]NP-C [facility] kb 22:41 Kesha Ruiz MD is Attending Physician. kb 22:49 Triage completed. cm10 22:49 Arm band placed on Patient placed in an exam room, on a stretcher. cm10 22:55 Tahira Smith, RN is Primary Nurse. tm6 23:07 Patient has correct armband on for positive identification. Bed in low position. Call tm6 light in reach. Side rails up X 1. Provided Education on: use of call murillo. Client placed on continuous cardiac and pulse oximetry monitoring. NIBP monitoring applied. Pulse ox on. NIBP on. Door closed. Noise minimized. Warm blanket given. Pillow given. 23:07 Flu Sent. tm6 23:07 Strep Sent. tm6 23:07 SARS-COV-2 Antigen Rapid Sent. tm6 03/13 00:50 No provider procedures requiring assistance completed. Patient did not have IV access tm6 during this emergency room visit. Administered Medications: 03/12 23:07 Drug: Ondansetron PO 4 mg PO once Route: PO; tm6 23:07 Drug: Ibuprofen PO 600 mg PO once Route: PO; tm6 03/13 00:49 Drug: Amoxicillin-Clavulanate PO 875 mg PO once Route: PO; tm6 Medication: 03/12 23:07 VIS not applicable for this client. tm6 Outcome: 03/13 00:30 Discharge ordered by . kb 00:50 Discharged to home ambulatory, tm6 00:50 Condition: stable 00:50 Discharge instructions given to patient, Instructed on discharge instructions, follow up and referral plans. medication usage, Demonstrated understanding of instructions, follow-up care, medications, Prescriptions given X 2, 00:50 Patient left the ED. tm6 Signatures: Frances Torres FNP-C FNP-Ckb Martinez, Clarissa, RN RN Isabel Lee 2 Tahira Smith, ZA MENDENHALL tm6
[2024-03-13] MEDS ORDERED: AMOX/K CLAV 875 MG TAB ONE (00:44)
[2024-03-13 02:03] VITALS: BP 111/65; TEMP 97.3; O2SAT 96
== END 2024-03-13 00:50 | disposition home or self-care (01) ==
LOC: ER 22:35
DX: B34.9 Viral infection, unspecified (principal); N39.0 Urinary tract infection, site not specified; Z11.52 Encounter for screening for COVID-19
CPT/HCPCS: 87070; 87088; 81001; 87086; 36415; 81025; 87081; 87804 ×2; 99284; 87811; Q0162

== ENCOUNTER 2024-03-13 20:55 | Emergency (ER) | payer BC ==
--- OUTSIDE RECORDS SUMMARY | 2024-03-13 20:58 | XMS REPORT | Continuity of Care Document ---
Author Name Unknown Address [address] [facility] [place] [address] [facility] thconnect Address [address] [facility] [address] [place] [address] Care Team Providers Care Infant Babysitter Name Role Phone PCP, PATIENT DOES NOT HAVE A Primary Care Physic fiona Unavailable LESVIA FOLEY Attending Clinician Unavailable Lesvia Foley MD Attending Clinician [phone] Doctor Unassigned, Hurricane Attending Clinician U Pierre Flores CRNA Attending Clinician [phone] Catalino Browning CRNA Attending Clinician [phone] Ismael Zamarripa MD Attending Clinician [phone] Ultrasound, Adc Mf Attending Clinician UnavailAureliano Koenig MD Attending Clinician [phone], Adc Lab Attending Clinician Unavailable RADHA HIGHTOWER Attending Clinician Unavailabl e Pcp, Patient Does Not Have A Attending Clinician Lab, Adc Fam Pob I Attending Clinician Unavailab Constance Lewis Attending Clinician [phone] CONSTANCE HARPER Attending Clinician Unavailable LESVIA FOLEY Admitting Clinician Unavailable Lesvia Foley MD Admitting Clinician [phone] Payers Payer Name Policy Type Policy Number Effective Date Expirati on Date Source [place] [id number] 2021 00:00:00 KASSANDRA ULLOA [id number] 1 00:00:00 Problems Condition Name Condition Details Condition Category Status Onset Date Resolution Date Last Treatment Date Treating Clinician Comments Source (normal spontaneou s vaginal delivery) (normal spontaneou s vaginal delivery) Disease Active 8-19 00:00: 00 [facility] Labor and delivery, indication for care Labor and delivery, indication for care Disease Active 8-18 00:00: 00 [facility] Uterine contractio ns during Uterine contractio ns during Disease Active 818 00:00: 00 [facility] Labor and delivery, indication for care Labor and delivery, indication for care Disease Active 818 00:00: 00 [facility] Obesity (BMI 30-39.9) Obesity (BMI 30-39.9) Disease Active 02-08 00:00: 00 [facility] Supervisio n of high-risk with insufficie nt care in third trimester Supervisio n of high-risk with insufficie nt care in third trimester Disease Active 02-08 00:00: 00 [facility] 37 weeks gestation of 37 weeks gestation of Disease Active 02-08 00:00: 00 [facility] 31 weeks gestation of 31 weeks gestation of Disease Active 02-08 00:00: 00 [facility] 33 weeks gestation of 33 weeks gestation of Disease Active 02-08 00:00: 00 [facility] 36 weeks gestation of 36 weeks gestation of Disease Active 02-08 00:00: 00 [facility] Allergies, Adverse Reactions, Alerts Allergy Name Allergy Type Status Severity Reaction(s) Onset Date Inactive Date Treating Clinician Comments Source NO KNOWN ALLERGIE S Drug Class Active [facility] Social History Social Habit Start Date Stop Date Quantity Comments Source ASSERTION 2020-07-17 00:00:00 [facility] History of tobacco use Current smoker [facility] Sexual orientation U [facility] Exposure to SARS-CoV-2 (event) 2021-04-25 00:00:00 2021-05-25 13:57:00 Not sure [facility] Alcohol intake 2021-05-25 00:00:00 2021-05-25 00:00:00 Lifetime non-drinker (finding) [facility] History of Social function 2021-05-25 00:00:00 2021-05-25 00:00:00 [facility] Tobacco use and exposure 2021-03-23 00:00:00 2021-03-23 00:00:00 Former smokeless tobacco user [facility] Education 2021-03-23 00:00:00 2021-03-23 00:00:00 11 [facility] Sex Assigned At 2002 00:00:00 2000 00:00:00 [facility] Smoking Status Start Date Stop Date Source Unknown [facility] Ex-[facility]oker 2021-03-23 00:00:00 2021-03-23 00:00:[address] [facility] Never smoker [facility] Medications Ordered Medication Name Filled Medication Name Start Date Stop Date Current Medication? Ordering Clinician Indication Dosage Frequency Signature (SIG) Comments Components Source medroxyPROG ESTERone (DEPO-PROVE RA) syringe 150 mg 2020-08 21:30: 00 05-25 21:00 :00 No [id number] 150mg [facility] vit calc,iron,f olic ( VITAMIN ORAL) 04-22 16:22: 27 Yes Take by mouth. [facility] vit calc,iron,f olic ( VITAMIN ORAL) 03-26 03:48: 15 Yes Take by mouth. [facility] ibuprofen 600 mg tablet 03-25 00:00: 00 Yes [id number] 600mg Take 1 tablet by mouth every 6 (six) hours as needed (Pain). Take with food or milk. [facility] ibuprofen (IBU) tablet 600 mg 03-24 20:18: 23 Yes 600mg 600 mg, Oral, Q6HPRN, Starting Sun03/24/21 at 1518, Until Discontinu ed, Routine, Pain (scale 4-6) [facility] acetaminoph en (TYLENOL) tablet 650 mg 03-24 20:18: 23 Yes 650mg 650 mg, Oral, Q6HPRN, Starting Sun03/24/21 at 1518, Until Discontinu ed, Routine, Pain (scale 1-3) [facility] diphenhydrA MINE (BENADRYL) tablet 25 mg 03-24 20:18: 23 Yes 25mg 25 mg, Oral, Q6HPRN, Starting Sun03/24/21 at 1518, Until Discontinu ed, Routine, Sleep, Itching [facility] ondansetron (ZOFRAN (PF)) injection 4 mg 03-24 20:18: 23 Yes 4mg 4 mg, Slow IV Push, Q8HPRN, Starting Sun03/24/21 at 1518, Until Discontinu ed, Routine, Nausea and Vomiting (N/V) [facility] simethicone (GAS RELIEF (SIMETHICON E)) chewable tablet 160 mg 03-24 20:18: 23 Yes 160mg 160 mg, Oral, PC+HSPRN, Starting Sun03/24/21 at 1518, Until Discontinu ed, Routine, Gas [facility] magnesium hydroxide (MILK OF MAGNESIA) 400 mg/5 mL suspension 30 mL 03-24 20:18: 23 Yes 30mL 30 mL, Oral, QDAILYPRN, Starting Sun03/24/21 at 1518, Until Discontinu ed, Routine, Constipati on [facility] benzocaine- menthol (DERMOPLAST ) 20-0.5 % topical spray 03-24 20:18: 22 Yes Topical, PRN, Starting Sun03/24/21 at 1518, Until Discontinu ed, Routine, Perineum discomfort [facility] bupivacaine (preserv free) 0.5% (SENSORCAIN E MPF) 0.5 % (5 mg/mL) injection 03-24 18:30: 00 03-24 21:47 :57 No Epidural, ONCE INTRA PROCEDURE, Starting Casi 03/24/21 at 1330, Until Discontinu ed, Routine, Intra-op [facility] FENTanyl PF (SUBLIMAZE (PF)) injection 03-24 17:08: 00 03-24 21:47 :57 No Epidural, ONCE INTRA PROCEDURE, Starting Casi 03/24/21 at 1208, Until Discontinu ed, Routine, Intra-op [facility] bupivacaine (preserv free) (SENSORCAIN E MPF) 0.25 % (2.5 mg/mL) injection 03-24 17:08: 00 03-24 21:47 :57 No Epidural, ONCE INTRA PROCEDURE, Starting Casi 03/24/21 at 1208, Until Discontinu ed, Routine, Intra-op [facility] FENTanyl 2 mcg/mL + bupivacaine 0.125% in NS 250 mL epidural bag 03-24 13:56: 00 03-24 21:47 :57 No Intra-op [facility] lidocaine-e pinephrine (XYLOCAINE W/EPINEPHRI NE) 1.5 %-1:200,000 injection 03-24 13:54: 00 03-24 21:47 :57 No Intraderma l, ONCE INTRA PROCEDURE, Starting Casi 03/24/21 at 0854, Until Discontinu ed, Routine, Intra-op [facility] lidocaine 1% (XYLOCAINE) 100 mg/10 mL (1 %) injection 03-24 12:53: 00 03-24 21:47 :57 No Infiltrati on, ONCE INTRA PROCEDURE, Starting Casi 03/24/21 at 0753, Until Discontinu ed, Routine, Intra-op [facility] LR 1000 mL + oxytocin 20 units IV Solution 03-24 05:00: 00 03-24 20:20 :01 No 2mU/min at 6-120 mL/hr, IV Infusion, TITRATE, Starting Casi 03/24/21 at 0000, Until Casi 8/19/21 at 1520, TUSHAR [facility] D5W-LR IV infusion 1,000 mL 03-23 21:45: 00 03-24 20:20 :01 No 1000mL at 125 mL/hr, IV Infusion, CONTINUOUS , Starting Sun03/23/21 at 1645, Until Sun03/24/21 at 1520, Routine [facility] FENTanyl PF (SUBLIMAZE (PF)) injection 100 mcg 03-23 21:42: 20 03-24 20:20 :01 No 100ug 100 mcg, Slow IV Push, Q1HPRN, Starting Sun03/23/21 at 1642, Until Sun03/24/21 at 1520, Routine, Pain (scale 4-6), Pain (scale 7-10) [facility] lactated ringers IV infusion 500 mL 03-23 21:32: 14 03-24 20:20 :01 No 500mL at 999 mL/hr, 500 mL, IV Infusion, PRN - SEE INSTRUCTIO NS, Starting Sun03/23/21 at 1632, Until Sun03/24/21 at 1520, Routine [facility] vit calc,iron,f olic ( VITAMIN ORAL) 03-23 21:11: 36 Yes Take by mouth. [facility] vit calc,iron,f olic ( VITAMIN ORAL) 03-23 18:07: 51 Yes Take by mouth. [facility] vit calc,iron,f olic ( VITAMIN ORAL) 02-08 18:35: 00 Yes Take by mouth. [facility] Immunizations Ordered Immunization Name Filled Immunization Name Date Status Comments Source MMR 2021-03-25 00:00:00 Completed [facility] Varicella (varivax)(chicken pox) 2021-03-25 00:00:00 Completed [facility] MMR 2021-03-25 00:00:00 Completed [facility] Varicella (varivax)(chicken pox) 2021-03-25 00:00:00 Completed [facility] MMR 2021-03-25 00:00:00 Completed [facility] Varicella (varivax)(chicken pox) 2021-03-25 00:00:00 Completed [facility] MMR 2021-03-25 00:00:00 Completed [facility] Varicella (varivax)(chicken pox) 2021-03-25 00:00:00 Completed [facility] MMR 2021-03-25 00:00:00 Completed [facility] Varicella (varivax)(chicken pox) 2021-03-25 00:00:00 Completed [facility] MMR 2021-03-25 00:00:00 Completed [facility] Varicella (varivax)(chicken pox) 2021-03-25 00:00:00 Completed [facility] 2021-03-25 00:00:00 Completed [facility] Varicella (varivax)(chicken pox) 2021-03-25 00:00:00 Completed [facility] 2021-03-25 00:00:00 Completed [facility] Varicella (varivax)(chicken pox) 2021-03-25 00:00:00 Completed [facility] MMR 2021-03-25 00:00:00 Completed [facility] Varicella (varivax)(chicken pox) 2021-03-25 00:00:00 Completed [facility] TDAP 2021-02-22 00:00:00 Completed [facility] TDAP 2021-02-22 00:00:00 Completed [facility] TDAP 2021-02-22 00:00:00 Completed [facility] TDAP 2021-02-22 00:00:00 Completed [facility] TDAP 2021-02-22 00:00:00 Completed [facility] TDAP 2021-02-22 00:00:00 Completed [facility] TDAP 2021-02-22 00:00:00 Completed [facility] TDAP 2021-02-22 00:00:00 Completed [facility] TDAP 2021-02-22 00:00:00 Completed [facility] TDAP 2021-02-22 00:00:00 Completed [facility] TDAP 2021-02-22 00:00:00 Completed [facility] TDAP 2021-02-22 00:00:00 Completed [facility] TDAP 2021-02-22 00:00:00 Completed [facility] TDAP 2021-02-22 00:00:00 Completed [facility] TDAP 2021-02-22 00:00:00 Completed [facility] TDAP 2021-02-22 00:00:00 Completed [facility] TDAP 2021-02-22 00:00:00 Completed [facility] TDAP Unknown Completed [facility] MMR Unknown Completed [facility] Varicella (varivax)(chicken pox) Unknown Completed [facility] Vital Signs Vital Name Observation Time Observation Value Comments S ource Systolic blood pressure 2021-05-25 19:47:00 107 mm[Hg] [facility] Diastolic blood pressure 2021-05-25 19:47:00 69 mm[Hg] [facility] Heart rate 2021-05-25 19:47:00 84 /min [facility] Body temperature 2021-05-25 19:47:00 36.78 Jenni [facility] Respiratory rate 2021-05-25 19:47:00 18 /min [facility] Body height 2021-05-25 19:47:00 160 cm [facility] Body weight 2021-05-25 19:47:00 85.276 kg [facility] BMI 2021-05-25 19:47:00 33.30 kg/m2 [facility] Body mass index (BMI) [Percentile] Per age and sex 2021-05-25 19:47:00 96.73 % [facility] Systolic blood pressure 2021-04-22 21:23:00 103 mm[Hg] [facility] Diastolic blood pressure 2021-04-22 21:23:00 69 mm[Hg] [facility] Heart rate 2021-04-22 21:23:00 103 /min [facility] Body temperature 2021-04-22 21:23:00 36.83 Jenni [facility] Respiratory rate 2021-04-22 21:23:00 16 /min [facility] Body height 2021-04-22 21:23:00 160 cm [facility] Body weight 2021-04-22 21:23:00 82.192 kg [facility] BMI 2021-04-22 21:23:00 32.10 kg/m2 [facility] Body mass index (BMI) [Percentile] Per age and sex 2021-04-22 21:23:00 96.04 % [facility] Systolic blood pressure 2021-03-25 16:18:00 115 mm[Hg] [facility] Diastolic blood pressure 2021-03-25 16:18:00 64 mm[Hg] [facility] Heart rate 2021-03-25 16:18:00 77 /min [facility] Body temperature 2021-03-25 16:18:00 36.39 Jenni [facility] Respiratory rate 2021-03-25 16:18:00 16 /min [facility] Oxygen saturation in Arterial blood by Pulse oximetry 2021-03-25 16:18:00 99 /min [facility] Body height 2021-03-23 22:05:00 160 cm [facility] Body weight 2021-03-23 22:05:00 80.287 kg [facility] BMI 2021-03-23 22:05:00 31.35 kg/m2 [facility] Heart rate 2021-03-23 17:30:00 111 /min [facility] Oxygen saturation in Arterial blood by Pulse oximetry 2021-03-23 17:30:00 98 /min [facility] Respiratory rate 2021-03-23 16:15:00 18 /min [facility] Systolic blood pressure 2021-03-23 14:09:00 111 mm[Hg] [facility] Diastolic blood pressure 2021-03-23 14:09:00 68 mm[Hg] [facility] Body temperature 2021-03-23 14:09:00 36.67 Jenni [facility] Body height 2021-03-23 14:09:00 160 cm [facility] Body weight 2021-03-23 14:09:00 82.101 kg [facility] BMI 2021-03-23 14:09:00 32.06 kg/m2 [facility] Systolic blood pressure 2021-03-17 20:21:00 101 mm[Hg] [facility] Diastolic blood pressure 2021-03-17 20:21:00 66 mm[Hg] [facility] Heart rate 2021-03-17 20:21:00 97 /min [facility] Body temperature 2021-03-17 20:21:00 36.83 Jenni [facility] Respiratory rate 2021-03-17 20:21:00 18 /min [facility] Body height 2021-03-17 20:21:00 160 cm [facility] Body weight 2021-03-17 20:21:00 82.192 kg [facility] BMI 2021-03-17 20:21:00 32.10 kg/m2 [facility] Systolic blood pressure 2021-02-22 13:30:00 110 mm[Hg] [facility] Diastolic blood pressure 2021-02-22 13:30:00 65 mm[Hg] [facility] Heart rate 2021-02-22 13:30:00 83 /min [facility] Body temperature 2021-02-22 13:30:00 36.33 Jenni [facility] Respiratory rate 2021-02-22 13:30:00 16 /min [facility] Body height 2021-02-22 13:30:00 160 cm [facility] Body weight 2021-02-22 13:30:00 82.283 kg [facility] BMI 2021-02-22 13:30:00 32.13 kg/m2 [facility] Systolic blood pressure 2021-02-08 18:24:00 115 mm[Hg] [facility] Diastolic blood pressure 2021-02-08 18:24:00 67 mm[Hg] [facility] Heart rate 2021-02-08 18:24:00 82 /min [facility] Body temperature 2021-02-08 18:24:00 36.72 Jenni [facility] Respiratory rate 2021-02-08 18:24:00 18 /min [facility] Body height 2021-02-08 18:24:00 160 cm [facility] Body weight 2021-02-08 18:24:00 80.287 kg [facility] BMI 2021-02-08 18:24:00 31.35 kg/m2 [facility] Procedures Procedure Date / Time Performed Performing Clinician Source CONSENT FOR CONTRACEPTION 2021-05-25 05:01:00 Doctor Unassigned, Hurricane [facility] POCT TEST 2021-05-25 00:00:00 Adum, Lesvia Lima [facility] DME/SUPPLY JUSTIFICATION 2021-04-07 05:01:00 Doc tor Unassigned, Hurricane [facility] CBC WITH DIFF 2021-03-25 08:52:00 Adum, Lesvia Arango [facility] CENTRAL NEURAXIAL BLOCK 2021-03-24 14:27:56 Catalino Browning [facility] CBC WITH DIFF 2021-03-23 21:54:00 Adum, Lesvia Arango [facility] HEPATITIS B SURFACE ANTIGEN 2021-03-23 21:54:00 Adum, Lesvia Lima [facility] ADC OR MELINDA ONLY - RPR 2021-03-23 21:54:00 Adum, Lesvia Lima [facility] HIV 1/2 AG-AB WITH REFLEX 2021-03-23 21:54:00 Adum, Lesvia Lima [facility] HB ABO GROUPING 2021-03-23 21:50:00 [facility] (ID NOW RAPID TESTING) 2021-03-23 15:14:00 Adum, Lesvia Lima [facility] NOTICE OF PRIVACY PRACTICES 2021-03-23 14:00:37 Doctor Unassigned, Hurricane [facility] CONSENT/REFUSAL FOR DIAGNOSIS AND TREATMENT 2021-03-23 13:56:26 Doctor Unassigned, Hurricane [facility] POCT URINALYSIS W/O SPECIFIC GRAVITY 2021-03-17 20:25:00 Lesvia Foley [facility] DSU PRE-OP 2021-03-17 05:01:00 Doctor Unass igned, Hurricane [facility] POCT URINALYSIS W/O SPECIFIC GRAVITY 2021-02-22 13:30:00 Lesvia Foley [facility] TDAP VACCINE, >11 YRS, IM 2021-02-22 13:29:54 Lesvia Foley [facility] EXTERNAL PROVIDER RECORDS 2021-02-22 05:01:00 Doctor Unassigned, Hurricane [facility] ASSIGNMENT OF BENEFITS 2021-02-08 18:07:34 Docto r Unassigned, Hurricane [facility] POCT URINALYSIS W/O SPECIFIC GRAVITY 2021-02-08 00:00:00 Lesvia Foley [facility] Encounters Start Date/Time End Date/Time Encounter Type Admission Type Attending [facility] Care Facility Care Department Encounter ID Source 2021-06-06 16:27:51 Outpatient X [facility] JAQUELINE [id number] [facility] 2021-06-06 16:21:14 Emergency [facility] [id number] [facility] 2024-04-01 08:00:00 2024-04-01 08:00:00 Outpatient R LESVIA FOLEY [facility] [id number] [facility] 2021-08-18 15:00:00 2021-08-18 15:00:00 Outpatient R [facility] [id number] [facility] 2021-08-17 15:00:00 2021-08-17 15:00:00 Outpatient R [facility] [id number] [facility] 2021-06-16 00:00:00 2021-06-16 00:00:00 Patient Secure Msg [facility] [id number] 350.1.13.10 4.2.7.2.686 [id number] [facility] 2021-05-25 13:57:39 2021-05-25 15:35:28 Routine Visit Adum, Lesvia Lima [facility] 1.840.114 350.1.13.10 4.2.7.2.686 [id number] [facility] 2021-05-25 14:15:00 2021-05-25 14:15:00 [id number] 2021-05-25 00:00:00 2021-05-25 00:00:00 Orders Only Doctor Unassigned, Hurricane [facility] 1.84.114 350.1.13.10 4.2.7.2.686 [id number] [facility] 2021-04-22 16:08:32 2021-04-22 16:38:27 Routine Visit Adum, Lesvia [facility] 1.840.114 350.1.13.10 4.2.7.2.686 [id number] [facility] 2021-04-22 16:15:00 2021-04-22 16:15:00 Outpatient R ADUM, [facility] [id number] [facility] 2021-04-20 14:15:00 2021-04-20 14:15:00 Outpatient R ADUM, [facility] [id number] [facility] 2021-04-07 00:00:00 2021-04-07 00:00:00 Orders Only Doctor Unassigned, Hurricane [facility] 1.84.114 350.1.13.10 4.2.7.2.686 [id number] [facility] 2021-04-07 00:00:00 2021-04-07 00:00:00 Case Management Adum, [facility] 1.84.114 350.1.13.10 4.2.7.2.686 [id number] [facility] 2021-03-23 16:10:00 2021-03-25 19:40:00 Hospital Encounter AdLesvia lyon [facility] 1.2.840.114 350.1.13.10 4.2.7.2.686 [id number] [facility] 2021-03-25 14:15:00 2021-03-25 14:15:00 Outpatient R ADMARY [facility] [id number] [facility] 2021-03-24 20:02:20 2021-03-24 20:02:20 Anesthesia Event Pierre Hernández [facility] 1.2.840.114 350.1.13.10 4.2.7.2.686 [id number] [facility] 2021-03-24 07:51:00 2021-03-24 16:47:00 Anesthesia Event Catalino Browning [facility] 1.2.840.114 350.1.13.10 4.2.7.2.686 [id number] [facility] 2021-03-23 09:01:00 2021-03-23 12:40:00 Emergency Admary [facility] 1.2.840.114 350.1.13.10 4.2.7.2.686 [id number] [facility] 2021-03-17 14:10:17 2021-03-17 16:00:49 Routine Visit Admary [facility] 1.2.840.114 350.1.13.10 4.2.7.2.686 [id number] [facility] 2021-03-17 14:15:00 2021-03-17 14:15:00 Outpatient R ADUM, LESVIA [facility] [id number] [facility] 2021-03-17 00:00:00 2021-03-17 00:00:00 Orders Only Doctor Unassigned, Hurricane [facility] 1.20.114 350.1.13.10 4.2.7.2.686 [id number] [facility] 2021-03-10 15:17:09 2021-03-10 16:17:09 Roll Mechanic Visit Ultrasound, Adc Mfm Thiago, Aureliano F [facility] 1.84.114 350.1.13.10 4.2.7.2.686 [id number] [facility] 2021-03-10 14:30:00 2021-03-10 14:30:00 Outpatient P [facility] [id number] [facility] 2021-03-08 16:15:00 2021-03-08 16:15:00 Outpatient R ADUM, [facility] [id number] [facility] 2021-02-22 08:16:06 2021-02-22 08:51:56 Routine Visit Jaylenmary Lesvia Clarence [facility] 1.2840.114 350.1.13.10 4.2.7.2.686 [id number] [facility] 2021-02-22 08:45:00 2021-02-22 08:45:00 Outpatient R ADUM, [facility] [id number] [facility] 2021-02-22 00:00:00 2021-02-22 00:00:00 Orders Only Doctor Unassigned, Hurricane [facility] 1.284.114 350.1.13.10 4.2.7.2.686 [id number] [facility] 2021-02-16 00:00:00 2021-02-16 00:00:00 Case Management Adum, Lesvia Lima [facility] 1.2.840.114 350.1.13.10 4.2.7.2.686 [id number] [facility] 2021-02-10 09:00:00 2021-02-10 09:00:00 Outpatient R ADUM, LESVIA [facility] [id number] [facility] 2021-02-08 14:16:18 2021-02-08 14:31:18 Roll Mechanic Visit 2, Adc Lab Adum, Lesvia Lima [facility] 1.2.840.114 350.1.13.10 4.2.7.2.686 [id number] [facility] 2021-02-08 14:15:00 2021-02-08 14:15:00 Outpatient R ADUM, LESVIA [facility] [id number] [facility] 2021-02-08 13:08:24 2021-02-08 14:05:35 Initial Visit Adum, Lesvia Lima [facility] 1.2.840.114 350.1.13.10 4.2.7.2.686 [id number] [facility] 2021-02-08 13:30:00 2021-02-08 13:30:00 Outpatient R ADUM, LESVIA [facility] [id number] [facility] 2021-02-08 13:30:00 2021-02-08 13:30:00 Outpatient R ADUM, [facility] [id number] [facility] 2021-02-08 00:00:00 2021-02-08 00:00:00 Orders Only Doctor Unassigned, Hurricane [facility] 1.2.840.114 350.1.13.10 4.2.7.2.686 [id number] [facility] 2021-02-02 09:30:00 2021-02-02 09:30:00 Outpatient R LESVIA FOLEY [facility] [id number] [facility] 2020-12-28 14:30:00 2020-12-28 14:30:00 Outpatient R RADHA HIGHTOWER [facility] [id number] [facility] 2020-11-29 14:00:00 2020-11-29 14:00:00 Outpatient R [facility] [id number] [facility] 2020-05-03 00:00:00 2020-05-03 00:00:00 Letter (Out) Pcp, Patient Does Not Have A [facility] [id number] [id number] [facility] 2020-04-28 11:29:35 2020-04-28 11:49:35 Laboratory Only Lab, Adc Fam Pob I Constance Harper [facility] 1..840.114 [id number] [facility] 2020-04-28 11:20:00 2020-04-28 11:20:00 Outpatient R CONSTANCE HARPER [facility] [id number] [facility] Results Test Description Test Time Test Comments Results Result Co mments Source [facility] with [id number] 10:18:55* Test Item Value Reference Range Interpretation [...] 32.9 g/dL 32.0-36.0 RDW-SD (test code = 49972-4) 38.1 fL 38.5-49.0 L RDW-CV (test code = 788-0) 12.5 % 11.5-14.0 PLT (test code = 777-3) See_Comment [Automated message] The system which generated this result transmitted reference range: 135 - 361 10*3/?L. The reference range was not used to interpret this result as normal/abnormal. MPV (test code = 94639-0) 11.1 fL 9.4-13.3 NRBC/100 WBC (test code = 3765227875) See_Comment [Automated message] The system which generated this result transmitted reference range: 0.0 - 10.0 /100 WBCs. The reference range was not used to interpret this result as normal/abnormal. NRBC x10^3 (test code = 7023972066) <0.01 See_Comment [Automated message] The system which generated this result transmitted reference range: 10*3/?L. The reference range was not used to interpret this result as normal/abnormal. GRAN MAT (NEUT) % (test code = 770-8) 77.6 % IMM GRAN % (test code = 5889332055) 0.70 % LYMPH % (test code = 736-9) 12.5 % MONO % (test code = 5905-5) 8.1 % EOS % (test code = 713-8) 0.8 % BASO % (test code = 706-2) 0.3 % GRAN MAT x10^3(ANC) (test code = 3067622912) 10.96 10*3/uL 1.50-10.30 H IMM GRAN x10^3 (test code = 4862071611) 0.10 10*3/uL 0.00-0.06 H LYMPH x10^3 (test code = 731-0) 1.77 10*3/uL 0.70-7.40 MONO x10^3 (test code = 742-7) 1.14 10*3/uL 0.00-0.50 H EOS x10^3 (test code = 711-2) 0.12 10*3/uL 0.00-0.40 BASO x10^3 (test code = 704-7) 0.04 10*3/uL 0.00-0.10 Lab Interpretation (test code = 72163-5) [facility] [id number] 14:27:56 Catalino Browning CRNA ? ? 03/24/2021 ?9:32 AM Central Neuraxial Block Performed by: Catalino Browning CRNAAuthorized by: Ismael Zamarripa MD Patient Location: OBStart Time: 03/24/2021 7:53 AMReason for Block: OB request, Patient request and Labor analgesiaStaff: ?Anesthesiologist: Ismael Zamarripa MD ?Resident/MOTION PICTURE NARRATOR: Catalino Browning CRNA ?Performed by: resident/MOTION PICTURE NARRATOR and anesthesiologistPreanesthetic Checklist: patient identified, IV checked, risks and benefits explained, monitors and equipmentchecked, timeout performed, ob surgical consent/approval, pre-op evaluation, surgical consent, sitemarked and anesthesia consentProcedure: ?Type of Neuraxial: Epidural ?Patient Position: sitting ?Prep: Betadine ? ?Monitoring: heart rate, continuous pulse ox and NIBP ?Location: lumbar (1-5) ?Lumbar: L2-L3 ?Approach: midline ? ?Technique: SERGE salineEpidural/Spinal [place] and/or Catheter: ?Epidural/Spinal Kit: BBraun ?Needle Type: [...] Assessment: patient tolerated procedure well with no complicationsUnHCA [facility] Healthcare KingwoodHepatitis B Surface Antigen 2021-03-24 08:01:00* Test Item Value Reference Range Interpretation Comme nts HBsAg Semi-Quantitative (silvana t code = 5195-3) Negative Negative [facility] - [id number] 07:54:52* Test Item Value Reference Range Interpretation Comme nts RPR (Qualitative) (test code = 52071-4) Nonreactive Nonreactive Lab Interpretation (test cod e = 77772-3) Normal [facility] HospitalHIV 1/2 AG-AB WITH [id number] 04:41:45* Test Item Value Reference Range Interpretation Comme nts HIV Semi-quantitative (test code = 65794-2) Negative Negative SHERMAN (test code = SHERMAN) Non-reactive for HIV-1 antigen and HIV-1/HIV-2 antibodies. ?No laboratory evidence of HIV infection. ?Repeat in 2-4 weeks if acute HIV infection is suspected. [facility] HospitalType and Screen - ONCE [id number] 23:53:22 * Test Item Value Reference Range Interpretation Comme nts ABO & RH (test code = 20) B Positive Performed at [facility] Laboratory [facility] Blood [address] [place] [address] Free: [phone] No. [id number] IAT (test code = 1185) Negative Performed at [facility] Laboratory [facility] Blood [address] [place], [place] [address]Toll Free: [phone] No. [id number] [facility] HospitalCBC with [id number] 22:39:59* Test Item Value Reference Range Interpretation [...] 33.6 g/dL 32.0-36.0 RDW-SD (test code = 96889-6) 38.4 fL 38.5-49.0 L RDW-CV (test code = 788-0) 12.6 % 11.5-14.0 PLT (test code = 777-3) See_Comment [Automated messa ge] The system which generated this result transmitted reference range: 135 - 361 10*3/?L. The reference range was not used to interpret this result as normal/abnormal. MPV (test code = 50353-9) 11.0 fL 9.4-13.3 NRBC/100 WBC (test code = 8111419466) See_Comment [Automated Agrar33 ssage] The system which generated this result transmitted reference range: 0.0 - 10.0 /100 WBCs. The reference range was not used to interpret this result as normal/abnormal. NRBC x10^3 (test code = 6027036935) <0.01 See_Comment [Automated Barcheyachta ge] The system which generated this result transmitted reference range: 10*3/?L. The reference range was not used to interpret this result as normal/abnormal. GRAN MAT (NEUT) % (test code = 770-8) 80.9 % IMM GRAN % (test code = 2203294284) 0.50 % LYMPH % (test code = 736-9) 11.2 % MONO % (test code = 5905-5) 6.4 % EOS % (test code = 713-8) 0.7 % BASO % (test code = 706-2) 0.3 % GRAN MAT x10^3(ANC) (test code = 7300404989) 9.59 10*3/uL 1.50-10.30 IMM GRAN x10^3 (test code = 0355512365) 0.06 10*3/uL 0.00-0.06 LYMPH x10^3 (test code = 731-0) 1.33 10*3/uL 0.70-7.40 MONO x10^3 (test code = 742-7) 0.76 10*3/uL 0.00-0.50 H EOS x10^3 (test code = 711-2) 0.08 10*3/uL 0.00-0.40 BASO x10^3 (test code = 704-7) 0.03 10*3/uL 0.00-0.10 Lab Interpretation (test code = 30167-3) Abnormal [facility] HospitalCOVID-19 (ID NOW RAPID TESTING)2021-03-23 15:49:48* Test Item Value Reference Range Interpretation Comme nts SARS-CoV-2 Rapid ID NOW (test code = 37627-9) Not Detected Not Detected SHERMAN (test code = SHERMAN) ID NOW COVID-19 As say is an isothermal nucleic acid amplification test intended for the qualitative detection of nucleic acid from SARS-CoV-2 viral RNA in nasopharyngeal (POOL LIFEGUARD) specimens. It is used under Emergency Use [...] clinically indicated. Lab Interpretation (test code = 26497-5) Normal [facility] HospitalPOCT URINALYSIS W/O SPECIFIC [id number] 20:25:00* Test Item Value Reference Range Interpretation [...] ve Lab Interpretation (test cod e = 84095-5) Normal [facility] URINALYSIS W/O SPECIFIC [id number] 13:30:00* Test Item Value Reference Range Interpretation [...] = 3257) n/a Negative - Negati ve [facility] URINALYSIS W/O SPECIFIC [id number] 18:35:00* Test Item Value Reference Range Interpretation [...] = 3257) N/A Negative - Negati ve [facility] URINALYSIS W/O SPECIFIC [id number] 18:35:00* Test Item Value Reference Range Interpretation Comme nts POCT PH U (test code = 3254) N/A 5-8 POCT U LEUK EST (test code = 3263) N/A Negative - Negative POCT U NIT (test code = 3262) N/A Negative - Negati ve POCT U PROT (test code = 3259) Negative Negative - Negat alexis POCT U GLU (test code = 8396) Negative Negative - Negati ve POCT U KETONE (test code = 3258) N/A Negative - Neg ative POCT U BLD (test code = 3257) N/A Negative - Negati ve [facility]
[2024-03-13] MEDS ORDERED: NA CHLORIDE 0.9% 1,000 ML ONE (21:52)
[2024-03-13] MEDS ORDERED: FAMOTIDINE 20 MG/2 ML VIAL IV ONE (21:52)
[2024-03-13] MEDS ORDERED: ONDANSETRON 4 MG/2 ML VIAL ONE (21:52)
--- NOTE | 2024-03-13 21:53 | RAD REPORT ---
EXAM DESCRIPTION: RAD - Chest Single View - 03/13/2024 9:45 pm CLINICAL HISTORY: COUGH Chest pain. COMPARISON: <Comparisons> FINDINGS: Portable technique limits examination quality. The lungs are grossly clear. The heart is normal in size. No displaced fractures. IMPRESSION: No acute intrathoracic process suspected.
[2024-03-13] MEDS ORDERED: ACETAMINOPHEN 500 MG TAB ONE (22:03)
[2024-03-13 22:10] LABS: Absolute Lymphocytes (CBC) 0.7 K/uL (0.7-4.9); Absolute Monocytes 1.1 K/uL (0.1-1.3); Absolute Neutrophil 9.4 K/uL (1.8-8.0); Basophils % 0.3 % (0-1.3); Eosinophils % 0.3 % (0-4.4); Hematocrit 39.2 % (36.0-45.0); Hemoglobin 13.2 g/dL (12.0-15.0); Lymphocytes % 6.6 % (15.3-44.8); MCH 27.9 pg (27.0-35.0); MCHC 33.8 g/dL (32.0-36.0); MCV 82.6 fL (80-100); MPV 8.2 fL (7.6-11.3); Monocytes % 9.9 % (3.3-12.3); Neutrophils % 82.9 % (41.7-73.7); Platelets 237 thou/uL (152-406); RBC Red Blood Cell Count 4.74 M/uL (3.86-4.86); Red Cell Distribution Width 13.5 % (12.1-15.2)
[2024-03-13 22:29] LABS: Specific Gravity > 1.030 (1.005-1.030); Urine Bacteria 20-50 /HPF (<20); Urine Bilirubin NEGATIVE (Negative); Urine Blood 1+ (Negative); Urine Clarity Extremely Turbid (Clear); Urine Color Yellow (Yellow); Urine Culture Reflex Order REFLEXED; Urine Glucose NEGATIVE (Negative); Urine Ketones 4+ (Over) (Negative); Urine Microscopic Reflex YN ORDER UMIC; Urine Mucus 1+ /HPF (None Seen); Urine Nitrite NEGATIVE (Negative); Urine Protein 2+ (Negative); Urine RBC >50 /HPF (None Seen); Urine Urobilinogen 2+ (Normal); Urine WBC >50 /HPF (<5)
[2024-03-13] MEDS ORDERED: MORPHINE 4 MG/ML SYR ONE (23:47)
[2024-03-14 00:01] LABS: Albumin 3.4 g/dL (3.4-5.0); Albumin/Globulin Ratio 0.9 (1.1-1.8); Anion Gap 13.2 mEq/L (5.0-15.0); Bilirubin Total 0.4 mg/dL (0.2-1.0); Globulin 3.9 g/dL (2.3-3.5); Potassium 3.2 mEq/L (3.5-5.1); Protein, Total 7.3 g/dL (6.4-8.2)
[2024-03-14] MEDS ORDERED: CEFTRIAXONE 1000 MG/VIAL ONE (00:20)
[2024-03-14] MEDS ORDERED: POTASSIUM 25 MEQ EFFERV TAB ONE (00:20)
--- NOTE | 2024-03-14 00:27 | ER ---
Nurse's Notes [facility] Name: Viridiana Navarrete Age: 23 yrs Sex: Female : 2000 Arrival Date: 03/13/2024 Time: 20:55 Bed 15 Private MD: Diagnosis: UTI/ Urinary tract infection, site not specified;Fever presenting with conditions classified elsewhere;Low back pain;Lower abdominal pain, unspecified Presentation: 03/13 21:28 Chief complaint: Patient states: I was here recently and diagnoses with a UTI. The pain jb4 is getting worse. Coronavirus screen: At this time, the client does not indicate any symptoms associated with coronavirus-19. Ebola Screen: No symptoms or risks identified at this time. Initial Sepsis Screen: Does the patient meet any 2 criteria? No. Patient's initial sepsis screen is negative. Does the patient have a suspected source of infection? No. Patient's initial sepsis screen is negative. Risk Assessment: Do you want to hurt yourself or someone else? Patient reports no desire to harm self or others. Onset of symptoms was March 13, 2024. Transition of care: patient was not received from another setting of care. 21:28 Method Of Arrival: Ambulatory jb4 21:28 Acuity: AMBROSIO 2 jb4 CARBONATING STONE CLEANER: 03/14 00:32 Not al5 Historical: - Allergies: 03/13 21:30 No Known Allergies; jb4 - PMHx: 21:30 UTI; jb4 - PSHx: 21:30 None; jb4 - Immunization history:: Adult Immunizations up to date. - Infectious Disease History:: Denies. - Social history:: Smoking status: Patient denies any tobacco usage or history of. Screenin:00 [facility] ED Fall Risk Assessment (Adult) History of falling in the last 3 months, al5 including since admission No falls in past 3 months (0 pts) Confusion or Disorientation No (0 pts) Intoxicated or Sedated No (0 pts) Impaired Gait No (0 pts) Mobility Assist Device Used No (0 pt) Altered Elimination No (0 pt) Score/Fall Risk Level 0 - 2 = Low Risk Oriented to surroundings, Maintained a safe environment, Hourly rounding (assess needs \T\ fall precautionary measures) done. Abuse screen: Denies threats or abuse. Denies injuries from another. Nutritional screening: No deficits noted. Tuberculosis screening: No symptoms or risk factors identified. Assessment: 21:59 General: Appears in no apparent distress. uncomfortable, Behavior is calm, cooperative. al5 Pain: Complains of pain in right lower quadrant and left lower quadrant Pain currently is 8 out of 10 on a pain scale. Neuro: Level of Consciousness is awake, alert, obeys commands, Oriented to person, place, time, situation. Cardiovascular: Patient's skin is warm and dry. Respiratory: Airway is patent Respiratory effort is even, unlabored, Respiratory pattern is regular, symmetrical. GI: Reports lower abdominal pain. : Urine is clear. : Reports burning with urination. EENT: No signs and/or symptoms were reported regarding the EENT system. Derm: Skin is pink, warm \T\ dry. normal. Musculoskeletal: No signs and/or symptoms reported regarding the musculoskeletal system. 23:00 Reassessment: Patient appears in no apparent distress at this time. No changes from al5 previously documented assessment. Patient and/or family updated on plan of care and expected duration. Pain level reassessed. Patient is alert, oriented x 3, equal unlabored respirations, skin warm/dry/pink. 03/14 00:32 Reassessment: Patient appears in no apparent distress at this time. Patient and/or al5 family updated on plan of care and expected duration. Pain level reassessed. Patient is alert, oriented x 3, equal unlabored respirations, skin warm/dry/pink. Patient states feeling better. Vital Signs: 03/13 21:28 BP 121 / 74; Pulse 111; Resp 18; Temp 101.1; Pulse Ox 100% on R/A; Weight 88.45 kg (R); jb4 Height 5 ft. 3 in. (R); Pain 10/10; 21:30 BP 122 / 67; Pulse 102; Resp 18; Pulse Ox 99% on R/A; al5 22:00 BP 122 / 77; Pulse 97; Resp 18; Pulse Ox 99% on R/A; al5 22:30 BP 130 / 73; Pulse 96; Resp 18; Pulse Ox 99% on R/A; al5 23:00 BP 119 / 72; Pulse 87; Resp 18; Pulse Ox 97% on R/A; al5 23:10 Temp 98.8(O); al5 03/14 00:00 BP 119 / 67; Pulse 84; Resp 18; Pulse Ox 97% on R/A; al5 00:00 BP 119 / 63; Pulse 84; Resp 18; Pulse Ox 97% on R/A; al5 08 21:28 Body Mass Index 34.54 (88.45 kg, 160.02 cm) jb4 08 21:28 Pain Scale: Adult jb4 ED Course: 03/13 20:58 Patient arrived in ED. gm2 20:59 Parrish Selby PA is PHCP. cp 20:59 Bello Sargent MD is Attending Physician. cp 21:30 Triage completed. jb4 21:30 Arm band placed on right wrist. jb4 21:40 Alesha Gusman, ZA is Primary Nurse. al5 21:46 XRAY Chest (1 view) In Process Unspecified. EDMS 21:59 CBC with Diff Sent. al5 21:59 CMP Sent. al5 21:59 Lipase Sent. al5 21:59 Test, Urine Sent. al5 21:59 Urinalysis w/ reflexes Sent. al5 22:01 Patient has correct armband on for positive identification. Bed in low position. Call al5 light in reach. Side rails up X 1. Provided Education on: processes and procedures. 22:01 No provider procedures requiring assistance completed. Inserted saline lock: 20 gauge al5 in right antecubital area, using aseptic technique. 22:01 Initial lab(s) drawn, by me, sent to lab. Urine collected: clean catch specimen, clear. al5 22:43 CT Abd/Pelvis - IV Contrast Only In Process Unspecified. EDMS 03/14 00:39 IV discontinued, intact, bleeding controlled, No redness/swelling at site. Pressure al5 dressing applied. Administered Medications: 03/13 21:58 Drug: Ondansetron IVP 4 mg IVP once; over 2 minutes Route: IVP; Site: right antecubital;al5 22:38 Follow up: Response: No adverse reaction al5 21:59 Drug: NS 0.9% IV 1000 ml IV at 1 bolus Per protocol; 1000 mL bolus Route: IV; Rate: 1 al5 bolus; Site: right antecubital; 03/14 00:40 Follow up: Response: No adverse reaction; IV Status: Completed infusion; IV Intake: al5 1000ml 03/13 21:59 Drug: Famotidine IVP 20 mg IVP once; dilute with 10 mL 0.9% NaCl; give over 2 minutes al5 Route: IVP; Site: right antecubital; 22:37 Follow up: Response: No adverse reaction al5 22:38 Follow up: Response: No adverse reaction al5 22:04 Drug: Acetaminophen PO 1000 mg PO once Route: PO; al5 22:38 Follow up: Response: No adverse reaction al5 03/14 00:11 Drug: morphine IVP or IV 4 mg IVP once over 4 mins Route: IVP; Infused Over: 4 mins; al5 Site: right antecubital; 00:16 Follow up: Response: No adverse reaction al5 00:16 Not Given (Patient Refused): oioqhjyjf28 mg IVP once al5 00:31 Drug: Potassium PO Effervescent Tablet 50 mEq PO once; dissolve in 4 ounces of water or al5 juice Route: PO; 00:39 Follow up: Response: No adverse reaction al5 00:31 Drug: Rocephin IV 1 grams IV at calculated rate once; Given slow IV push per pharmacy al5 instructions Route: IV; Rate: calculated rate; Site: right antecubital; 00:39 Follow up: Response: No adverse reaction; IV Intake: 10ml al5 Medication: 03/13 22:01 VIS not applicable for this client. al5 Intake: 03/14 00:39 IV: 10ml; Total: 10ml. al5 00:40 IV: 1000ml; Total: 1010ml. al5 Outcome: 00:26 Discharge ordered by MD. jordan 00:46 Discharged to home ambulatory, with significant other, al5 00:46 Condition: good 00:46 Discharge instructions given to patient, Instructed on discharge instructions, follow up and referral plans. medication usage, Demonstrated understanding of instructions, follow-up care, medications, Prescriptions given X 3, 00:58 Patient left the ED. al5 Signatures: Dispatcher [employer] EDMS Parrish Selby PA PA cp Bryson, James, RN RN jb4 Isabel May gm2 Alesha Gusman RN RN al5
--- NOTE | 2024-03-14 00:27 | EDPHYS ---
Physician Documentation [facility] Name: Viridiana Navarrete Age: 23 yrs Sex: Female : 2000 Arrival Date: 03/13/2024 Time: 20:55 Bed 15 Private MD: ED Physician Bello Sargent HPI: 03/13 21:20 This 23 yrs old Female presents to ER via Ambulatory with complaints of Pain With cp Urination. 21:20 The patient reports fever, with an emergency department temperature of 101.1 degrees cp Fahrenheit. 21:20 Onset: The symptoms/episode began/occurred today. Associated signs and symptoms: cp Pertinent positives: abdominal pain, backache, pain with urination. Severity of symptoms: in the emergency department the symptoms are unchanged despite home interventions. SHEET TURNER: 03/14 00:32 Not al5 Historical: - Allergies: 03/13 21:30 No Known Allergies; jb4 - PMHx: 21:30 UTI; jb4 - PSHx: 21:30 None; jb4 - Immunization history:: Adult Immunizations up to date. - Infectious Disease History:: Denies. - Social history:: Smoking status: Patient denies any tobacco usage or history of. ROS: 21:25 Constitutional: Positive for body aches, fever, cp 21:25 Eyes: Negative for injury, pain, redness, and discharge, cp 21:25 Cardiovascular: Negative for chest pain, 21:25 Respiratory: Positive for cough, Negative for shortness of breath, wheezing, 21:25 Abdomen/GI: Positive for abdominal pain, of the lower abdomen, 21:25 Back: Positive for pain at rest, of the lower back, 21:25 Neuro: Negative for altered mental status, Exam: 21:30 Constitutional: The patient appears in no acute distress, alert, awake, non-toxic, well cp developed, well nourished, obese, 21:30 Head/Face: Normocephalic, atraumatic. cp 21:30 Eyes: Periorbital structures: appear normal, Conjunctiva: normal, no exudate, no injection, Sclera: no appreciated abnormality, Lids and lashes: appear normal, bilaterally, 21:30 ENT: External ear(s): are unremarkable, Ear canal(s): are normal, clear, TM's: dullness, bilaterally, Nose: is normal, Mouth: Lips: moist, Oral mucosa: moist, Posterior pharynx: Airway: no evidence of obstruction, patent, 21:30 Neck: ROM/movement: is normal, is supple, without pain, no range of motions limitations, 21:30 Chest/axilla: Inspection: normal, 21:30 Cardiovascular: Rate: tachycardic, Rhythm: regular, Edema: is not appreciated, JVD: is not appreciated, 21:30 Respiratory: the patient does not display signs of respiratory distress, Respirations: normal, no use of accessory muscles, no retractions, labored breathing, is not present, Breath sounds: are clear throughout, no decreased breath sounds, no stridor, no wheezing, 21:30 Abdomen/GI: Inspection: abdomen appears normal, Bowel sounds: active, all quadrants, Palpation: soft, in all quadrants, moderate abdominal tenderness, in the right lower quadrant and left lower quadrant, 21:30 Back: pain, that is moderate, of the low back area, ROM is painful, with all movement, 21:30 Neuro: Orientation: to person, place \T\ time. Mentation: is normal, Motor: moves all fours, strength is normal, Sensation: is normal, Gait: is steady, Vital Signs: 21:28 BP 121 / 74; Pulse 111; Resp 18; Temp 101.1; Pulse Ox 100% on R/A; Weight 88.45 kg (R); jb4 Height 5 ft. 3 in. (R); Pain 10/10; 21:30 BP 122 / 67; Pulse 102; Resp 18; Pulse Ox 99% on R/A; al5 22:00 BP 122 / 77; Pulse 97; Resp 18; Pulse Ox 99% on R/A; al5 22:30 BP 130 / 73; Pulse 96; Resp 18; Pulse Ox 99% on R/A; al5 23:00 BP 119 / 72; Pulse 87; Resp 18; Pulse Ox 97% on R/A; al5 23:10 Temp 98.8(O); al5 03/14 00:00 BP 119 / 67; Pulse 84; Resp 18; Pulse Ox 97% on R/A; al5 00:00 BP 119 / 63; Pulse 84; Resp 18; Pulse Ox 97% on R/A; al5 03/13 21:28 Body Mass Index 34.54 (88.45 kg, 160.02 cm) jb4 03/13 21:28 Pain Scale: Adult jb4 MDM: 03/13 21:22 Patient medically screened. 03/14 00:25 Data reviewed: vital signs, nurses notes, lab test result(s), radiologic studies, CT cp scan, plain films, and as a result, I will discharge patient. 00:25 Differential diagnosis: viral Infection, bacterial infection, bronchitis, pneumonia cp UTI. Consideration of Admission/Observation Escalation of care including admission/observation considered. I considered the following discharge prescriptions or medication management in the emergency department Medications were administered in the Emergency Department. See MAR. Counseling: I had a detailed discussion with the patient and/or guardian regarding the historical points, exam findings, and any diagnostic results supporting the discharge/admit diagnosis, lab results, radiology results, the need for outpatient follow up, a family practitioner, to return to the emergency department if symptoms worsen or persist or if there are any questions or concerns that arise at home. Response to treatment: the patient's symptoms have markedly improved after treatment, and as a result, I will discharge patient. 03/13 21:16 Order name: CBC with Diff; Complete Time: 22:22 03/13 22:22 Interpretation: Normal except: WBC 11.30; MEHRDAD% 82.9; LYM% 6.6; NEUT A 9.4. 03/13 21:16 Order name: CMP; Complete Time: 00:08 03/14 00:09 Interpretation: Normal except: NA 134; K 3.2; BUN 5; AST 14; GLOB 3.9; A/G 0.9. 03/13 21:16 Order name: Lipase; Complete Time: 00:08 cp 03/14 00:09 Interpretation: Reviewed. 03/13 21:16 Order name: Test, Urine; Complete Time: 23:09 03/13 23:10 Interpretation: Normal except: Urine SG > 1.030. 03/13 21:16 Order name: Urinalysis w/ reflexes; Complete Time: 23:09 03/13 23:10 Interpretation: Normal except: UCLA Extremely Turbid; Urine SG > 1.030; UKET 4+ (Over); cp UBLD 1+; UPROT 2+; UUROB 2+; UESTR 500; UWBC >50; URBC >50; UBACT 20-50. 03/13 21:17 Order name: XRAY Chest (1 view); Complete Time: 21:55 cp 03/13 21:55 Interpretation: Report review. cp 03/13 22:25 Order name: CT Abd/Pelvis - IV Contrast Only cp 03/13 21:16 Order name: IV Saline Lock; Complete Time: 21:59 cp 03/13 21:16 Order name: Labs collected and sent; Complete Time: 21:59 cp 03/14 00:10 Order name: PO challenge; Complete Time: 00:33 cp Administered Medications: 03/13 21:58 Drug: Ondansetron IVP 4 mg IVP once; over 2 minutes Route: IVP; Site: right antecubital;al5 22:38 Follow up: Response: No adverse reaction al5 21:59 Drug: NS 0.9% IV 1000 ml IV at 1 bolus Per protocol; 1000 mL bolus Route: IV; Rate: 1 al5 bolus; Site: right antecubital; 03/14 00:40 Follow up: Response: No adverse reaction; IV Status: Completed infusion; IV Intake: al5 1000ml 03/13 21:59 Drug: Famotidine IVP 20 mg IVP once; dilute with 10 mL 0.9% NaCl; give over 2 minutes al5 Route: IVP; Site: right antecubital; 22:37 Follow up: Response: No adverse reaction al5 22:38 Follow up: Response: No adverse reaction al5 22:04 Drug: Acetaminophen PO 1000 mg PO once Route: PO; al5 22:38 Follow up: Response: No adverse reaction al5 03/14 00:11 Drug: morphine IVP or IV 4 mg IVP once over 4 mins Route: IVP; Infused Over: 4 mins; al5 Site: right antecubital; 00:16 Follow up: Response: No adverse reaction al5 00:16 Not Given (Patient Refused): [id number] mg IVP once al5 00:31 Drug: Potassium PO Effervescent Tablet 50 mEq PO once; dissolve in 4 ounces of water or al5 juice Route: PO; 00:39 Follow up: Response: No adverse reaction al5 00:31 Drug: Rocephin IV 1 grams IV at calculated rate once; Given slow IV push per pharmacy al5 instructions Route: IV; Rate: calculated rate; Site: right antecubital; 00:39 Follow up: Response: No adverse reaction; IV Intake: 10ml al5 Disposition Summary: 03/14/24 00:26 Discharge Ordered Notes: Location: Home cp Problem: new cp Symptoms: have improved cp Condition: Stable cp Diagnosis - UTI/ Urinary tract infection, site not specified cp - Fever presenting with conditions classified elsewhere cp - Low back pain cp - Lower abdominal pain, unspecified cp Followup: cp - With: Private Physician - When: 2 - 3 days - Reason: Recheck today's complaints Discharge Instructions: - Discharge Summary Sheet cp - Abdominal Pain, Adult cp - Acute Back Pain, Adult cp - Urinary Tract Infection, Adult cp - Heat Therapy cp Forms: - Medication Reconciliation Form cp - Antibiotic Education cp - Prescription Opioid Use cp - Patient Portal Instructions cp - Leadership Thank You Letter cp Prescriptions: - Anaprox DS 550 mg Oral Tablet - take 1 tablet ORAL route every 12 hours As needed; 20 tablet; Refills: 0, cp Product Selection Permitted - Zofran 4 mg Oral Tablet - take 1 tablet ORAL route every 12 hours As needed; 20 tablet; Refills: 0, cp Product Selection Permitted - Cyclobenzaprine 10 mg Oral tablet - take 1 tablet ORAL route every 8 hours As needed; 20 tablet; Refills: 0, cp Product Selection Permitted Addendum: 03/15/2024 01:19 I was immediately available for consultation during this patient's visit. I did not e c2 personally see the patient or discuss the patient with the LETA. . Signatures: Dispatcher [employer] Parrish Flor PA PA cp Bryson, James, RN RN jb4 Bello Sargent MD MD ec2 Alesha Gusman RN RN al5
[2024-03-14 01:24] VITALS: O2SAT 97
[2024-03-14 01:25] VITALS: TEMP 98.8
[2024-03-14 01:26] VITALS: BP 119/63
--- NOTE | 2024-03-14 15:28 | RAD REPORT ---
EXAM DESCRIPTION: CT - Abdomen Pelvis W Contrast - 03/13/2024 10:41 pm DATE: 03/13/2024 10:25 PM CDT CLINICAL HISTORY: 23-year-old female with lower abdominal and back pain. COMPARISON: None. TECHNIQUE: Volumetric CT of the abdomen and pelvis acquired following the intravenous administration of contrast. Axial, coronal and sagittal images are provided. The study was performed using dose red uction techniques including automated exposure control and/or adjustment of the MA and/or KV accordin g to patient size, and/or iterative reconstruction techniques. FINDINGS: Rubber Heel And Sole Press Tender/Lines, tubes and hardware: None. Lower thorax: Mild bibasilar subsegmental atelectasis. No consolidation or pleural effusion . Partial ly visualized heart is normal in size. Liver: No hepatic lesion Biliary tree: No intra- or extrahepatic bile duct dilation. Gallbladder: No calcified cholelithiasis or pericholecystic inflammation Pancreas: No pancreatic lesion.. Spleen: No splenic lesion. Spleen measures 14.2 cm in AP dimension by 12.6 cm in CC dimension. Adrenals: No adrenal gland lesion. Kidneys and ureters: No renal lesion, nephrolithiasis, or hydronephrosis. Bladder/reproductive organs: Urinary bladder is not well filled. No focal lesion. Retroverted uterus. Incidental 16mm physiologic left ovarian corpus luteum cyst. Gastrointestinal tract: Lower esophagus/stomach: Small hiatal hernia. Stomach is decompressed. Small bowel/colon: Scattered fluid and gas throughout nondistended small bowel and colon. No mural th ickening or perienterocolic inflammation. Appendix: Normal caliber partially gas-filled appendix. Peritoneum, mesentery and retroperitoneum: Trace free pelvic fluid, likely physiologic. Lymph nodes: No pathologic adenopathy based on size criteria. Vasculature: Aorta and branches: Aorta has a normal diameter. IVC and veins: IVC has normal diameter. Subcentimeter calcified pelvic phleboliths. Bones: Minimal degenerative changes, including multilevel thoracic spondylosis. Soft tissues: Peripheral aspect of the soft tissues extends off the imaged field of view. IMPRESSION: 1. No inflammatory changes. 2. Small hiatal hernia. 3. Small amount of free pelvic fluid, likely physiologic. 4. Mild splenomegaly. Electronically signed by: Ismael Hernandez MD 03/13/2024 11:37 PM CDT RP Due to temporary technical issues with the PACS/Fluency reporting system, reports are being signed by the in house radiologists without review as a courtesy to insure prompt reporting. The interpreting radiologist is fully responsible for the content of the report.
== END 2024-03-14 00:58 | disposition home or self-care (01) ==
LOC: ER 20:55
DX: N39.0 Urinary tract infection, site not specified (principal); M54.50 Low back pain, unspecified; R10.30 Lower abdominal pain, unspecified
CPT/HCPCS: 96361; 85025; 81001; 36415; 81025; 83690; 80053; 74177; 71045; 96375; 96374; 99284; Q9967; J2405; J7030; J0696

== ENCOUNTER 2024-08-21 13:58 | Emergency (ER) | payer BC ==
--- OUTSIDE RECORDS SUMMARY | 2024-08-21 14:03 | XMS REPORT | Continuity of Care Document ---
Author Name Unknown Address [address] [facility] [place] [place] [address] [facility] thconnect Address [address] [facility] [place] [place] [address] Care Team Providers Care Web Press Operator Helper Offset Name Role Phone PCP, PATIENT DOES NOT HAVE A Primary Care Physic fiona Unavailable LESVIA FOLEY Attending Clinician Unavailable LESVIA FOLEY Attending Clinician Unavailable Doctor Unassigned, [place] Attending Clinician U Pierre Flores CRNA Attending Clinician [phone] Catalino Browning CRNA Attending Clinician + [phone] Ismael Zamarripa MD Attending Clinician [phone] Ultrasound, Adc Mf Attending Clinician UnavailAureliano Koenig MD Attending Clinician [phone], Adc Lab Attending Clinician Unavailable RADHA HIGHTOWER Attending Clinician Unavailabl e Pcp, Patient Does Not Have A Attending Clinician Lab, Adc Fam Pob I Attending Clinician Unavailab Constance Lewis Attending Clinician [phone] CONSTANCE HARPER Attending Clinician Unavailable LESVIA FOLEY Admitting Clinician Unavailable Lesvia Foley MD Admitting Clinician [phone] Payers Payer Name Policy Type Policy Number Effective Date Expirati on Date Source [facility] [id number] 2021 00:00:00 [facility] [id number] 2023 00:00:00 KASSANDRA ULLOA [id number] 1 00:00:00 Problems Condition Name Condition Details Condition Category Status Onset Date Resolution Date Last Treatment Date Treating Clinician Comments Source (normal spontaneou s vaginal delivery) (normal spontaneou s vaginal delivery) Disease Active 819 00:00: 00 [facility] Labor and delivery, indication for care Labor and delivery, indication for care Disease Active 818 00:00: 00 [facility] Uterine contractio ns during Uterine contractio ns during Disease Active 8 00:00: 00 [facility] Labor and delivery, indication for care Labor and delivery, indication for care Disease Active 818 00:00: 00 [facility] Obesity (BMI 30-39.9) Obesity (BMI 30-39.9) Disease Active 02-08 00:00: 00 [facility] Supervisio n of high-risk with insufficie nt care in third trimester Supervisio n of high-risk with insufficie nt care in third trimester Disease Active 02-08 00:00: 00 [facility] 37 weeks gestation of 37 weeks gestation of Disease Active 02-08 00:00: 00 [facility] 31 weeks gestation of 31 weeks gestation of Disease Active 02-08 00:00: 00 [facility] 33 weeks gestation of 33 weeks gestation of Disease Active 02-08 00:00: 00 [facility] 36 weeks gestation of 36 weeks gestation of Disease Active 02-08 00:00: 00 [facility] Allergies, Adverse Reactions, Alerts Allergy Name Allergy Type Status Severity Reaction(s) Onset Date Inactive Date Treating Clinician Comments Source NO KNOWN ALLERGIE S Drug Class Active [facility] Social History Social Habit Start Date Stop Date Quantity Comments Source ASSERTION 2020-07-17 00:00:00 [facility] History of tobacco use Current smoker [facility] Sexual orientation [facility] Exposure to SARS-CoV-2 (event) 2021-04-25 00:00:00 2021-05-25 13:57:00 Not sure [facility] Alcohol intake 2021-05-25 00:00:00 2021-05-25 00:00:00 Lifetime non-drinker (finding) [facility] History of Social function 2021-05-25 00:00:00 2021-05-25 00:00:00 [facility] Tobacco use and exposure 2021-03-23 00:00:00 2021-03-23 00:00:00 Former smokeless tobacco user [facility] Education 2021-03-23 00:00:00 2021-03-23 00:00:00 11 [facility] Sex Assigned At 2002 00:00:00 2000 00:00:00 [facility] Smoking Status Start Date Stop Date Source Unknown if ever smoked [facility] Ex-smoker 2021-03-23 00:00:00 2021-03-23 00:00:00 [facility] Never smoker [facility] Medications Ordered Medication Name Filled Medication Name Start Date Stop Date Current Medication? Ordering Clinician Indication Dosage Frequency Signature (SIG) Comments Components Source medroxyPROG ESTERone (DEPO-PROVE RA) syringe 150 mg 2020-08 21:30: 00 05-25 21:00 :00 No [id number] 150mg [facility] vit calc,iron,f olic ( VITAMIN ORAL) 04-22 16:22: 27 Yes Take by mouth. [facility] vit calc,iron,f olic ( VITAMIN ORAL) 03-26 03:48: 15 Yes Take by mouth. [facility] ibuprofen 600 mg tablet 03-25 00:00: 00 Yes [id number] 600mg Take 1 tablet by mouth every 6 (six) hours as needed (Pain). Take with food or milk. [facility] ibuprofen (IBU) tablet 600 mg 03-24 20:18: 23 Yes 600mg 600 mg, Oral, Q6HPRN, Starting Sun03/24/21 at 1518, Until Discontinu ed, Routine, Pain (scale 4-6) [facility] acetaminoph en (TYLENOL) tablet 650 mg 03-24 20:18: 23 Yes 650mg 650 mg, Oral, Q6HPRN, Starting Sun03/24/21 at 1518, Until Discontinu ed, Routine, Pain (scale 1-3) [facility] diphenhydrA MINE (BENADRYL) tablet 25 mg 03-24 20:18: 23 Yes 25mg 25 mg, Oral, Q6HPRN, Starting Sun03/24/21 at 1518, Until Discontinu ed, Routine, Sleep, Itching [facility] ondansetron (ZOFRAN (PF)) injection 4 mg 03-24 20:18: 23 Yes 4mg 4 mg, Slow IV Push, Q8HPRN, Starting Sun03/24/21 at 1518, Until Discontinu ed, Routine, Nausea and Vomiting (N/V) [facility] simethicone (GAS RELIEF (SIMETHICON E)) chewable tablet 160 mg 03-24 20:18: 23 Yes 160mg 160 mg, Oral, PC+HSPRN, Starting Sun03/24/21 at 1518, Until Discontinu ed, Routine, Gas [facility] magnesium hydroxide (MILK OF MAGNESIA) 400 mg/5 mL suspension 30 mL 03-24 20:18: 23 Yes 30mL 30 mL, Oral, QDAILYPRN, Starting Sun03/24/21 at 1518, Until Discontinu ed, Routine, Constipati on [facility] benzocaine- menthol (DERMOPLAST ) 20-0.5 % topical spray 03-24 20:18: 22 Yes Topical, PRN, Starting Casi 03/24/21 at 1518, Until Discontinu ed, Routine, Perineum discomfort [facility] bupivacaine (preserv free) 0.5% (SENSORCAIN E MPF) 0.5 % (5 mg/mL) injection 03-24 18:30: 00 03-24 21:47 :57 No Epidural, ONCE INTRA PROCEDURE, Starting Casi 03/24/21 at 1330, Until Discontinu ed, Routine, Intra-op [facility] FENTanyl PF (SUBLIMAZE (PF)) injection 03-24 17:08: 00 03-24 21:47 :57 No Epidural, ONCE INTRA PROCEDURE, Starting Casi 03/24/21 at 1208, Until Discontinu ed, Routine, Intra-op [facility] bupivacaine (preserv free) (SENSORCAIN E MPF) 0.25 % (2.5 mg/mL) injection 03-24 17:08: 00 03-24 21:47 :57 No Epidural, ONCE INTRA PROCEDURE, Starting [facility]asi 03/24/21 at 1208, Until Discontinu ed, Routine, Intra-op [facility] FENTanyl 2 mcg/mL + bupivacaine 0.125% in NS 250 mL epidural bag 03-24 13:56: 00 03-24 21:47 :57 No Intra-op [facility] lidocaine-e pinephrine (XYLOCAINE W/EPINEPHRI NE) 1.5 %-1:200,000 injection 03-24 13:54: 00 03-24 21:47 :57 No Intraderma l, ONCE INTRA PROCEDURE, Starting [facility] 03/24/21 at 0854, Until Discontinu ed, Routine, Intra-op [facility] lidocaine 1% (XYLOCAINE) 100 mg/10 mL (1 %) injection 03-24 12:53: 00 03-24 21:47 :57 No Infiltrati on, ONCE INTRA PROCEDURE, Starting Casi 03/24/21 at 0753, Until Discontinu ed, Routine, Intra-op [facility] LR 1000 mL + oxytocin 20 units IV Solution 03-24 05:00: 00 03-24 20:20 :01 No 2mU/min at 6-120 mL/hr, IV Infusion, TITRATE, Starting Sun03/24/21 at 0000, Until Sun03/24/21 at 1520, TUSHAR [facility] D5W-LR IV infusion 1,000 mL 03-23 21:45: 00 03-24 20:20 :01 No 1000mL at 125 mL/hr, IV Infusion, CONTINUOUS , Starting Sun03/23/21 at 1645, Until Sun03/24/21 at 1520, Routine [facility] FENTanyl PF (SUBLIMAZE (PF)) injection 100 mcg 03-23 21:42: 20 03-24 20:20 :01 No 100ug 100 mcg, Slow IV Push, Q1HPRN, Starting Sun03/23/21 at 1642, Until Sun03/24/21 at 1520, Routine, Pain (scale 4-6), Pain (scale 7-10) [facility] lactated ringers IV infusion 500 mL 03-23 21:32: 14 03-24 20:20 :01 No 500mL at 999 mL/hr, 500 mL, IV Infusion, PRN - SEE INSTRUCTIO NS, Starting Sun03/23/21 at 1632, Until Sun03/24/21 at 1520, Routine [facility] vit calc,iron,f olic ( VITAMIN ORAL) 03-23 21:11: 36 Yes Take by mouth. [facility] vit calc,iron,f olic ( VITAMIN ORAL) 03-23 18:07: 51 Yes Take by mouth. [facility] vit calc,iron,f olic ( VITAMIN ORAL) 06 18:35: 00 Yes Take by mouth. [facility] Immunizations Ordered Immunization Name Filled Immunization Name Date Status Comments Source MMR 2021-03-25 00:00:00 Completed [facility] Varicella (varivax)(chicken pox) 2021-03-25 00:00:00 Completed [facility] MMR 2021-03-25 00:00:00 Completed [facility] Varicella (varivax)(chicken pox) 2021-03-25 00:00:00 Completed [facility] MMR 2021-03-25 00:00:00 Completed [facility] Varicella (varivax)(chicken pox) 2021-03-25 00:00:00 Completed [facility] MMR 2021-03-25 00:00:00 Completed [facility] Varicella (varivax)(chicken pox) 2021-03-25 00:00:00 Completed [facility] MMR 2021-03-25 00:00:00 Completed [facility] Varicella (varivax)(chicken pox) 2021-03-25 00:00:00 Completed [facility] MMR 2021-03-25 00:00:00 Completed [facility] Varicella (varivax)(chicken pox) 2021-03-25 00:00:00 Completed [facility] TDAP 2021-02-22 00:00:00 Completed [facility] TDAP 2021-02-22 00:00:00 Completed [facility] TDAP 2021-02-22 00:00:00 Completed [facility] TDAP 2021-02-22 00:00:00 Completed [facility] TDAP 2021-02-22 00:00:00 Completed [facility] TDAP 2021-02-22 00:00:00 Completed [facility] TDAP 2021-02-22 00:00:00 Completed [facility] TDAP 2021-02-22 00:00:00 Completed [facility] TDAP 2021-02-22 00:00:00 Completed [facility] TDAP 2021-02-22 00:00:00 Completed [facility] TDAP 2021-02-22 00:00:00 Completed [facility] TDAP 2021-02-22 00:00:00 Completed [facility] TDAP 2021-02-22 00:00:00 Completed [facility] TDAP 2021-02-22 00:00:00 Completed [facility] TDAP Unknown Completed [facility] MMR Unknown Completed [facility] Varicella (varivax)(chicken pox) Unknown Completed [facility] Vital Signs Vital Name Observation Time Observation Value Comments S ource Systolic blood pressure 2021-05-25 19:47:00 107 mm[Hg] [facility] Diastolic blood pressure 2021-05-25 19:47:00 69 mm[Hg] [facility] Heart rate 2021-05-25 19:47:00 84 /min [facility] Body temperature 2021-05-25 19:47:00 36.78 Jenni [facility] Respiratory rate 2021-05-25 19:47:00 18 /min [facility] Body height 2021-05-25 19:47:00 160 cm [facility] Body weight 2021-05-25 19:47:00 85.276 kg [facility] BMI 2021-05-25 19:47:00 33.30 kg/m2 [facility] Body mass index (BMI) [Percentile] Per age and sex 2021-05-25 19:47:00 96.73 % [facility] Systolic blood pressure 2021-04-22 21:23:00 103 mm[Hg] [facility] Diastolic blood pressure 2021-04-22 21:23:00 69 mm[Hg] [facility] Heart rate 2021-04-22 21:23:00 103 /min [facility] Body temperature 2021-04-22 21:23:00 36.83 Jenni [facility] Respiratory rate 2021-04-22 21:23:00 16 /min [facility] Body height 2021-04-22 21:23:00 160 cm [facility] Body weight 2021-04-22 21:23:00 82.192 kg [facility] BMI 2021-04-22 21:23:00 32.10 kg/m2 [facility] Body mass index (BMI) [Percentile] Per age and sex 2021-04-22 21:23:00 96.04 % [facility] Systolic blood pressure 2021-03-25 16:18:00 115 mm[Hg] [facility] Diastolic blood pressure 2021-03-25 16:18:00 64 mm[Hg] [facility] Heart rate 2021-03-25 16:18:00 77 /min [facility] Body temperature 2021-03-25 16:18:00 36.39 Jenni [facility] Respiratory rate 2021-03-25 16:18:00 16 /min [facility] Oxygen saturation in Arterial blood by Pulse oximetry 2021-03-25 16:18:00 99 /min [facility] Body height 2021-03-23 22:05:00 160 cm [facility] Body weight 2021-03-23 22:05:00 80.287 kg [facility] BMI 2021-03-23 22:05:00 31.35 kg/m2 [facility] Heart rate 2021-03-23 17:30:00 111 /min [facility] Oxygen saturation in Arterial blood by Pulse oximetry 2021-03-23 17:30:00 98 /min [facility] Respiratory rate 2021-03-23 16:15:00 18 /min [facility] Systolic blood pressure 2021-03-23 14:09:00 111 mm[Hg] [facility] Diastolic blood pressure 2021-03-23 14:09:00 68 mm[Hg] [facility] Body temperature 2021-03-23 14:09:00 36.67 Jenni [facility] Body height 2021-03-23 14:09:00 160 cm [facility] Body weight 2021-03-23 14:09:00 82.101 kg [facility] BMI 2021-03-23 14:09:00 32.06 kg/m2 [facility] Systolic blood pressure 2021-03-17 20:21:00 101 mm[Hg] [facility] Diastolic blood pressure 2021-03-17 20:21:00 66 mm[Hg] [facility] Heart rate 2021-03-17 20:21:00 97 /min [facility] Body temperature 2021-03-17 20:21:00 36.83 Jenni [facility] Respiratory rate 2021-03-17 20:21:00 18 /min [facility] Body height 2021-03-17 20:21:00 160 cm [facility] Body weight 2021-03-17 20:21:00 82.192 kg [facility] BMI 2021-03-17 20:21:00 32.10 kg/m2 [facility] Systolic blood pressure 2021-02-22 13:30:00 110 mm[Hg] [facility] Diastolic blood pressure 2021-02-22 13:30:00 65 mm[Hg] [facility] Heart rate 2021-02-22 13:30:00 83 /min [facility] Body temperature 2021-02-22 13:30:00 36.33 Jenni [facility] Respiratory rate 2021-02-22 13:30:00 16 /min [facility] Body height 2021-02-22 13:30:00 160 cm [facility] Body weight 2021-02-22 13:30:00 82.283 kg [facility] BMI 2021-02-22 13:30:00 32.13 kg/m2 [facility] Systolic blood pressure 2021-02-08 18:24:00 115 mm[Hg] [facility] Diastolic blood pressure 2021-02-08 18:24:00 67 mm[Hg] [facility] Heart rate 2021-02-08 18:24:00 82 /min [facility] Body temperature 2021-02-08 18:24:00 36.72 Jenni [facility] Respiratory rate 2021-02-08 18:24:00 18 /min [facility] Body height 2021-02-08 18:24:00 160 cm [facility] Body weight 2021-02-08 18:24:00 80.287 kg [facility] BMI 2021-02-08 18:24:00 31.35 kg/m2 [facility] Procedures Procedure Date / Time Performed Performing Clinician Source CONSENT FOR CONTRACEPTION 2021-05-25 05:01:00 Doctor Unassigned, [place] [facility] POCT TEST 2021-05-25 00:00:00 Lesvia Foley [facility] DME/SUPPLY JUSTIFICATION 2021-04-07 05:01:00 Doc tor Unassigned, [place] [facility] CBC WITH DIFF 2021-03-25 08:52:00 Adum, Lesvia Arango [facility] CENTRAL NEURAXIAL BLOCK 2021-03-24 14:27:56 Catalino Browning [facility] CBC WITH DIFF 2021-03-23 21:54:00 Adum, Lesvia Arango [facility] HEPATITIS B SURFACE ANTIGEN 2021-03-23 21:54:00 Adum, Lesvia Lima [facility] ADC OR MELINDA ONLY - RPR 2021-03-23 21:54:00 Adum, Lesvia Lima [facility] HIV 1/2 AG-AB WITH REFLEX 2021-03-23 21:54:00 Adum, Lesvia Lima [facility] HB ABO GROUPING 2021-03-23 21:50:00 [facility] (ID NOW RAPID TESTING) 2021-03-23 15:14:00 Adum, Lesvia Lima [facility] NOTICE OF PRIVACY PRACTICES 2021-03-23 14:00:37 Doctor Unassigned, [place] [facility] CONSENT/REFUSAL FOR DIAGNOSIS AND TREATMENT 2021-03-23 13:56:26 Doctor Unassigned, [place] [facility] POCT URINALYSIS W/O SPECIFIC GRAVITY 2021-03-17 20:25:00 Adum, Lesvia Lima [facility] DSU PRE-OP 2021-03-17 05:01:00 Doctor Unass igned, [place] [facility] POCT URINALYSIS W/O SPECIFIC GRAVITY 2021-02-22 13:30:00 Adum, Lesvia Lima [facility] TDAP VACCINE, >11 YRS, IM 2021-02-22 13:29:54 Adum, Lesvia Lima [facility] EXTERNAL PROVIDER RECORDS 2021-02-22 05:01:00 Doctor Unassigned, [place] [facility] ASSIGNMENT OF BENEFITS 2021-02-08 18:07:34 Docto r Unassigned, [place] [facility] POCT URINALYSIS W/O SPECIFIC GRAVITY 2021-02-08 00:00:00 JaylenLesvia hernandez Clarence [facility] Encounters Start Date/Time End Date/Time Encounter Type Admission Type Attending Clinicians Care Facility Care Department Encounter ID Source 2021-06-06 16:27:51 Outpatient X [facility] JAQUELINE [id number] [facility] 2021-06-06 16:21:14 Emergency [facility] [id number] [facility] 2024-06-03 15:30:00 2024-06-03 15:30:00 Outpatient R LESVIA FOLEY LESVIA FOLEY [facility] [id number] [facility] 2024-05-21 09:30:00 2024-05-21 09:30:00 Outpatient R JAYLENMARYLESVIA VIVIAN [facility] [id number] [facility] 2024-04-01 08:00:00 2024-04-01 08:00:00 Outpatient R LESVIA FOLEY LESVIA [facility] [id number] [facility] 2021-08-18 15:00:00 2021-08-18 15:00:00 Outpatient R [facility] [id number] [facility] 2021-08-17 15:00:00 2021-08-17 15:00:00 Outpatient R [facility] [id number] [facility] 2021-06-16 00:00:00 2021-06-16 00:00:00 Patient Secure Msg JaylenLesvia hernandez Clarence [facility] 1.2.840.114 350.1.13.10 4.2.7.2.686 [id number] [facility] 2021-05-25 13:57:39 2021-05-25 15:35:28 Routine Visit Jaylenmary Lesvia Clarence [facility] [id number] 350.1.13.10 4.2.7.2.686 [id number] [facility] 2021-05-25 14:15:00 2021-05-25 14:15:00 Outpatient R ADLESVIA HERNANDEZ [facility] [id number] [facility] 2021-05-25 00:00:00 2021-05-25 00:00:00 Orders Only Doctor Unassigned, [place] [facility] 1.0.114 350.1.13.10 4.2.7.2.686 [id number] [facility] 2021-04-22 16:08:32 2021-04-22 16:38:27 Routine Visit Admary [facility] 1.2.114 350.1.13.10 4.2.7.2.686 [id number] [facility] 2021-04-22 16:15:00 2021-04-22 16:15:00 Outpatient R LIZBETH [facility] [id number] [facility] 2021-04-20 14:15:00 2021-04-20 14:15:00 Outpatient R LIZBETH [facility] [id number] [facility] 2021-04-07 00:00:00 2021-04-07 00:00:00 Orders Only Doctor Unassigned, [place] [facility] 1..114 350.1.13.10 4.2.7.2.686 [id number] [facility] 2021-04-07 00:00:00 2021-04-07 00:00:00 Case Management Adum, [facility] 1.2.114 350.1.13.10 4.2.7.2.686 [id number] [facility] 2021-03-23 16:10:00 2021-03-25 19:40:00 Hospital Encounter Admary [facility] [id number] 350.1.13.10 4.2.7.2.686 [id number] [facility] 2021-03-25 14:15:00 2021-03-25 14:15:00 Outpatient R LESVIA FOLEY [facility] [id number] [facility] 2021-03-24 20:02:20 2021-03-24 20:02:20 Anesthesia Event Pierre Hernández [facility] 1.2840.114 350.1.13.10 4.2.7.2.686 [id number] [facility] 2021-03-24 07:51:00 2021-03-24 16:47:00 Anesthesia Event Catalino BrowningIsmael [facility] 1.2840.114 350.1.13.10 4.2.7.2.686 [id number] [facility] 2021-03-23 09:01:00 2021-03-23 12:40:00 Emergency Admary [facility] 1.2840.114 350.1.13.10 4.2.7.2.686 [id number] [facility] 2021-03-17 14:10:17 2021-03-17 16:00:49 Routine Visit AdLesvia hernandez [facility] 1.2840.114 350.1.13.10 4.2.7.2.686 [id number] [facility] 2021-03-17 14:15:00 2021-03-17 14:15:00 Outpatient R ADLESVIA HERNANDEZ [facility] [id number] [facility] 2021-03-17 00:00:00 2021-03-17 00:00:00 Orders Only Doctor Unassigned, [place] [facility] 1.2840.114 350.1.13.10 4.2.7.2.686 [id number] [facility] 2021-03-10 15:17:09 2021-03-10 16:17:09 Electronics Test Engineer Visit Ultrasound, Adc Mfuzair Das Aureliano Richardson [facility] 1.840.114 350.1.13.10 4.2.7.2.686 [id number] [facility] 2021-03-10 14:30:00 2021-03-10 14:30:00 Outpatient P [facility] [id number] [facility] 2021-03-08 16:15:00 2021-03-08 16:15:00 Outpatient R ADLESVIA HERNANDEZ [facility] [id number] [facility] 2021-02-22 08:16:06 2021-02-22 08:51:56 Routine Visit AdLesvia hernandez [facility] 1.84.114 350.1.13.10 4.2.7.2.686 [id number] [facility] 2021-02-22 08:45:00 2021-02-22 08:45:00 Outpatient R ADUM, LESVIA [facility] [id number] [facility] 2021-02-22 00:00:00 2021-02-22 00:00:00 Orders Only Doctor Unassigned, [place] [facility] 1..114 350.1.13.10 4.2.7.2.686 [id number] [facility] 2021-02-16 00:00:00 2021-02-16 00:00:00 Case Management Adum Lesvia Clarence [facility] 1.84.114 350.1.13.10 4.2.7.2.686 [id number] [facility] 2021-02-10 09:00:00 2021-02-10 09:00:00 Outpatient R ADLESVIA HERNANDEZ [facility] [id number] [facility] 2021-02-08 14:16:18 2021-02-08 14:31:18 Electronics Test Engineer Visit 2, Adc Lab Adum, Lesvia Lima [facility] 1.2.840.114 350.1.13.10 4.2.7.2.686 [id number] [facility] 2021-02-08 14:15:00 2021-02-08 14:15:00 Outpatient R ADMARY LESVIA [facility] [facility] [id number] [facility] 2021-02-08 13:08:24 2021-02-08 14:05:35 Initial Visit Adum, Lesvia Lima [facility] [id number] [id number] [facility] 2021-02-08 13:30:00 2021-02-08 13:30:00 Outpatient R LIZBETH [facility] [id number] [facility] 2021-02-08 13:30:00 2021-02-08 13:30:00 Outpatient R LIZBETH [facility] [id number] [facility] 2021-02-08 00:00:00 2021-02-08 00:00:00 Orders Only Doctor Unassigned, [place] [facility] [id number] [facility] 2021-02-02 09:30:00 2021-02-02 09:30:00 Outpatient R ADMARY [facility] [id number] [facility] 2020-12-28 14:30:00 2020-12-28 14:30:00 Outpatient R RADHA HIGHTOWER [facility] [id number] [facility] 2020-11-29 14:00:00 2020-11-29 14:00:00 Outpatient R [facility] [id number] [facility] 2020-05-03 00:00:00 2020-05-03 00:00:00 Letter (Out) Pcp, Patient Does Not Have A [facility] .114 [id number] [id number] [facility] 2020-04-28 11:29:35 2020-04-28 11:49:35 Laboratory Only Lab, Adc Fam Pob I Constance Harper [facility] [id number] [id number] [id number] [facility] 2020-04-28 11:20:00 2020-04-28 11:20:00 Outpatient R CONSTANCE HARPER [facility] [id number] [facility] Results Test Description Test Time Test Comments Results Result Co mments Source [facility] [id number] 10:18:55* Test Item Value Reference Range Interpretation [...] 32.9 g/dL 32.0-36.0 RDW-SD (test code = 30400-8) 38.1 fL 38.5-49.0 L RDW-CV (test code = 788-0) 12.5 % 11.5-14.0 PLT (test code = 777-3) See_Comment [Automated message] The system which generated this result transmitted reference range: 135 - 361 10*3/?L. The reference range was not used to interpret this result as normal/abnormal. MPV (test code = 48438-5) 11.1 fL 9.4-13.3 NRBC/100 WBC (test code = 6682641524) See_Comment [Automated message] The system which generated this result transmitted reference range: 0.0 - 10.0 /100 WBCs. The reference range was not used to interpret this result as normal/abnormal. NRBC x10^3 (test code = 5412704314) <0.01 See_Comment [Automated message] The system which generated this result transmitted reference range: 10*3/?L. The reference range was not used to interpret this result as normal/abnormal. GRAN MAT (NEUT) % (test code = 770-8) 77.6 % IMM GRAN % (test code = 4004494402) 0.70 % LYMPH % (test code = 736-9) 12.5 % MONO % (test code = 5905-5) 8.1 % EOS % (test code = 713-8) 0.8 % BASO % (test code = 706-2) 0.3 % GRAN MAT x10^3(ANC) (test code = 1859375391) 10.96 10*3/uL 1.50-10.30 H IMM GRAN x10^3 (test code = 5167969171) 0.10 10*3/uL 0.00-0.06 H LYMPH x10^3 (test code = 731-0) 1.77 10*3/uL 0.70-7.40 MONO x10^3 (test code = 742-7) 1.14 10*3/uL 0.00-0.50 H EOS x10^3 (test code = 711-2) 0.12 10*3/uL 0.00-0.40 BASO x10^3 (test code = 704-7) 0.04 10*3/uL 0.00-0.10 Lab Interpretation (test code = 53441-1) Abnormal [facility] [id number] 14:27:56 Catalino Browning CRNA ? ? 03/24/2021 ?9:32 AM Central Neuraxial Block Performed by: Catalino Browning CRNAAuthorized by: Ismael Zamarripa MD Patient Location: OBStart Time: 03/24/2021 7:53 AMReason for Block: OB request, Patient request and Labor analgesiaStaff: ?Anesthesiologist: Ismael Zamarripa MD ?Resident/REGULATORY AFFAIRS DIRECTOR: Catalino Browning CRNA ?Performed by: resident/REGULATORY AFFAIRS DIRECTOR and anesthesiologistPreanesthetic Checklist: patient identified, IV checked, risks and benefits explained, monitors and equipmentchecked, timeout performed, ob surgical consent/approval, pre-op evaluation, surgical consent, sitemarked and anesthesia consentProcedure: ?Type of Neuraxial: Epidural ?Patient Position: sitting ?Prep: Betadine ? ?Monitoring: heart rate, continuous pulse ox and NIBP ?Location: lumbar (1-5) ?Lumbar: L2-L3 ?Approach: midline ? ?Technique: SERGE salineEpidural/Spinal Afton and/or Catheter: ?Epidural/Spinal Kit: BBun ?Needle Type: Tuohy ?Needle Gauge: 17 G [...] Assessment: patient tolerated procedure well with no complicationsUnNorthwest Texas Healthcare Systemtis B Surface Antigen 2021-03-24 08:01:00* Test Item Value Reference Range Interpretation Comme nts HBsAg Semi-Quantitative (silvana t code = 5195-3) Negative Negative [facility] OR MELINDA ONLY - [id number] 07:54:52* Test Item Value Reference Range Interpretation Comme nts RPR (Qualitative) (test code = 08269-0) Nonreactive Nonreactive Lab Interpretation (test cod e = 27334-9) Normal [facility]2 AG-AB WITH [id number] 04:41:45* Test Item Value Reference Range Interpretation Comme nts HIV Semi-quantitative (test code = 92466-4) Negative Negative SHERMAN (test code = SHERMAN) Non-reactive for HIV-1 antigen and HIV-1/HIV-2 antibodies. ?No laboratory evidence of HIV infection. ?Repeat in 2-4 weeks if acute HIV infection is suspected. [facility] HospitalType and Screen - ONCE [id number] 23:53:22 * Test Item Value Reference Range Interpretation Comme nts ABO & RH (test code = 20) B Positive Performed at [facility] Blood [address] [place] [address] Free: [phone] No. [id number] IAT (test code = 1185) Negative Performed at [facility] Blood [address] [place], [place] [address]Toll Free: [phone] No. [id number] [facility]CBC with [id number] 22:39:59* Test Item Value Reference Range Interpretation [...] 33.6 g/dL 32.0-36.0 RDW-SD (test code = 32629-7) 38.4 fL 38.5-49.0 L RDW-CV (test code = 788-0) 12.6 % 11.5-14.0 PLT (test code = 777-3) See_Comment [Automated messa ge] The system which generated this result transmitted reference range: 135 - 361 10*3/?L. The reference range was not used to interpret this result as normal/abnormal. MPV (test code = 99541-0) 11.0 fL 9.4-13.3 NRBC/100 WBC (test code = 8704214240) See_Comment [Automated ProFounder ssage] The system which generated this result transmitted reference range: 0.0 - 10.0 /100 WBCs. The reference range was not used to interpret this result as normal/abnormal. NRBC x10^3 (test code = 6216502018) <0.01 See_Comment [Automated Local Marketersa ge] The system which generated this result transmitted reference range: 10*3/?L. The reference range was not used to interpret this result as normal/abnormal. GRAN MAT (NEUT) % (test code = 770-8) 80.9 % IMM GRAN % (test code = 2384742418) 0.50 % LYMPH % (test code = 736-9) 11.2 % MONO % (test code = 5905-5) 6.4 % EOS % (test code = 713-8) 0.7 % BASO % (test code = 706-2) 0.3 % GRAN MAT x10^3(ANC) (test code = 6240403033) 9.59 10*3/uL 1.50-10.30 IMM GRAN x10^3 (test code = 7269089349) 0.06 10*3/uL 0.00-0.06 LYMPH x10^3 (test code = 731-0) 1.33 10*3/uL 0.70-7.40 MONO x10^3 (test code = 742-7) 0.76 10*3/uL 0.00-0.50 H EOS x10^3 (test code = 711-2) 0.08 10*3/uL 0.00-0.40 BASO x10^3 (test code = 704-7) 0.03 10*3/uL 0.00-0.10 Lab Interpretation (test code = 77451-2) Abnormal [facility] HospitalCOVID-19 (ID NOW RAPID TESTING)2021-03-23 15:49:48* Test Item Value Reference Range Interpretation Comme nts SARS-CoV-2 Rapid ID NOW (test code = 86989-8) Not Detected Not Detected SHERMAN (test code = SHERMAN) ID NOW COVID-19 As say is an isothermal nucleic acid amplification test intended for the qualitative detection of nucleic acid from SARS-CoV-2 viral RNA in nasopharyngeal (KEY BED INSTALLER) specimens. It is used under Emergency Use [...] clinically indicated. Lab Interpretation (test code = 90158-7) Normal [facility] HospitalPOUT URINALYSIS W/O SPECIFIC [id number] 20:25:00* Test Item Value Reference Range Interpretation [...] ve Lab Interpretation (test cod e = 81481-2) Normal [facility] URINALYSIS W/O SPECIFIC [id number] 13:30:00* Test Item Value Reference Range Interpretation [...] = 3257) n/a Negative - Negati ve [facility] URINALYSIS W/O SPECIFIC [id number] 18:35:00* Test Item Value Reference Range Interpretation Comme nts POCT PH U (test code = 3254) N/A 5-8 POCT U LEUK EST (test code = 3263) N/A Negative - Negative POCT U NIT (test code = 3262) N/A Negative - Negati ve POCT U PROT (test code = 3259) Negative Negative - Negat aleixs POCT U GLU (test code = 3256) Negative Negative - Negati ve POCT U KETONE (test code = 3258) N/A Negative - Neg ative POCT U BLD (test code = 3257) N/A Negative - Negati ve [facility] URINALYSIS W/O SPECIFIC [id number] 18:35:00* Test Item Value Reference Range Interpretation [...] = 3257) N/A Negative - Negati ve [facility]
[2024-08-21 16:04] LABS: Specific Gravity 1.026 (1.005-1.030)
[2024-08-21 16:06] LABS: Specific Gravity 1.026 (1.005-1.030); Urine Bacteria <20 /HPF (<20); Urine Bilirubin NEGATIVE (Negative); Urine Blood 3+ (OVER) (Negative); Urine Clarity Extremely Turbid (Clear); Urine Color Light-Orange (Yellow); Urine Culture Reflex Order REFLEXED; Urine Glucose NEGATIVE (Negative); Urine Ketones NEGATIVE (Negative); Urine Microscopic Reflex YN ORDER UMIC; Urine Mucus 2+ /HPF (None Seen); Urine Nitrite NEGATIVE (Negative); Urine Protein 1+ (Negative); Urine RBC >50 /HPF (None Seen); Urine Urobilinogen Normal (Normal); Urine WBC >50 /HPF (<5); Urine pH 6.5 (5.0-7.0)
--- NOTE | 2024-08-21 16:15 | ER ---
Nurse's Notes [facility] Name: Viridiana Navarrete Age: 24 yrs Sex: Female : 2000 Arrival Date: 08/21/2024 Time: 13:58 Bed DIS1 Private MD: Diagnosis: UTI/ Urinary tract infection, site not specified;Dysuria Presentation: 08/21 14:18 Chief complaint: Patient states: Lower abdominal pain and low back pain with nausea for ll1 2 days. Coronavirus screen: Client denies travel out of the [place] in the last 14 days. At this time, the client does not indicate any symptoms associated with coronavirus-19. Ebola Screen: Patient denies travel to an Ebola-affected area in the 21 days before illness onset. Initial Sepsis Screen: Does the patient meet any 2 criteria? No. Patient's initial sepsis screen is negative. Does the patient have a suspected source of infection? No. Patient's initial sepsis screen is negative. Risk Assessment: Do you want to hurt yourself or someone else? Patient reports no desire to harm self or others. Onset of symptoms was August 20, 2024. 14:18 Method Of Arrival: Ambulatory ll1 14:18 Acuity: AMBROSIO 3 ll1 Triage Assessment: 14:18 General: Appears uncomfortable, Behavior is calm, cooperative, appropriate for age. jb4 Pain: Complains of pain in left lower quadrant and right lower quadrant Pain radiates to back Quality of pain is described as aching. GI: Reports lower abdominal pain, nausea. Historical: - Allergies: 14:18 No Known Allergies; ll1 - Home Meds: 14:18 None [Active]; ll1 - PMHx: 14:18 UTI; ll1 - PSHx: 14:18 None; ll1 - Immunization history:: Adult Immunizations up to date. - Social history:: Smoking status: Reported history of juuling and/or vaping. Screenin:49 [facility] ED Fall Risk Assessment (Adult) History of falling in the last 3 months, jb4 including since admission No falls in past 3 months (0 pts) Confusion or Disorientation No (0 pts) Intoxicated or Sedated No (0 pts) Impaired Gait No (0 pts) Mobility Assist Device Used No (0 pt) Altered Elimination No (0 pt) Score/Fall Risk Level 0 - 2 = Low Risk Oriented to surroundings, Maintained a safe environment. Abuse screen: Denies threats or abuse. Nutritional screening: No deficits noted. Tuberculosis screening: No symptoms or risk factors identified. Assessment: 14:48 General: Appears in no apparent distress. comfortable, Behavior is calm, cooperative, jb4 appropriate for age. Pain: Complains of pain in right lower quadrant and left lower quadrant Pain does not radiate. Pain currently is 6 out of 10 on a pain scale. Neuro: Level of Consciousness is awake, alert, obeys commands, Oriented to person, place, time, situation. Cardiovascular: Patient's skin is warm and dry. Respiratory: Airway is patent Respiratory effort is even, unlabored, Respiratory pattern is regular, symmetrical. GI: Abdomen is flat, non-distended, Reports lower abdominal pain, nausea. Derm: Skin is intact, Skin is pink, warm \T\ dry. Musculoskeletal: Circulation, motion, and sensation intact. Range of motion: intact in all extremities. 17:08 Reassessment: Patient appears in no apparent distress at this time. Patient and/or jb4 family updated on plan of care and expected duration. Pain level reassessed. Patient is alert, oriented x 3, equal unlabored respirations, skin warm/dry/pink. Vital Signs: 14:18 BP 123 / 81; Pulse 106; Resp 17; Temp 97.5; Pulse Ox 100% ; Height 5 ft. 3 in. ; Pain ll1 6/10; 14:18 Pain Scale: Adult ll1 ED Course: 14:06 Patient arrived in ED. im 14:09 [facility] Selby [facility] cp 14:09 Parrish Fuentes MD is Attending Physician. cp 14:19 Triage completed. ll1 14:48 Abhay Shea, ZA is Primary Nurse. jb4 14:49 Patient has correct armband on for positive identification. Bed in low position. Call jb4 light in reach. Side rails up X 1. Provided Education on: plan of care. 17:09 No provider procedures requiring assistance completed. Patient did not have IV access jb4 during this emergency room visit. Administered Medications: 16:54 Drug: Rocephin (cefTRIAXone) IM 1 grams IM once Route: IM; Site: right gluteus; jb4 17:08 Follow up: Response: No adverse reaction jb4 16:54 Drug: Cefdinir PO 300 mg PO once Route: PO; jb4 17:08 Follow up: Response: No adverse reaction jb4 16:54 Drug: Phenazopyridine PO 200 mg PO once Route: PO; jb4 17:08 Follow up: Response: No adverse reaction jb4 16:54 Drug: Trimethoprim-Sulfamethoxazole PO (160 mg-800 mg (DS) 1 tablet PO once Route: PO; jb4 17:09 Follow up: Response: No adverse reaction jb4 Medication: 14:49 VIS not applicable for this client. jb4 Outcome: 16:15 Discharge ordered by . taylor 17:09 Discharged to home ambulatory, jb4 17:09 Condition: stable 17:09 Discharge instructions given to patient, Instructed on discharge instructions, follow up and referral plans. medication usage, Demonstrated understanding of instructions, follow-up care, medications, Prescriptions given X 3, 17:10 Patient left the ED. jb4 Signatures: Parrish Fuentes MD MD cha Page, Corey, SAGE PA Abhay Claros RN RN jb4 Ryan Hackett RN RN ll1 Doreen Joel Corrections: (The following items were deleted from the chart) 14:49 14:48 GI: Abdomen is flat, non-distended, jb4 jb4
--- NOTE | 2024-08-21 16:15 | EDPHYS ---
Physician Documentation [facility] Name: Viridiana Navarrete Age: 24 yrs Sex: Female : 2000 Arrival Date: 08/21/2024 Time: 13:58 Bed DIS1 Private MD: ED Physician Parrish Fuentes HPI: 08/21 15:54 This 24 yrs old Female presents to ER via Ambulatory with complaints of taylor Abdominal Pain, Low Back Pain. 15:54 The patient presents with pain that is acute, with no known mechanism of injury. The taylor symptoms are located in the low back. Historical: - Allergies: 14:18 No Known Allergies; ll1 - Home Meds: 14:18 None [Active]; ll1 - PMHx: 14:18 UTI; ll1 - PSHx: 14:18 None; ll1 - Immunization history:: Adult Immunizations up to date. - Social history:: Smoking status: Reported history of juuling and/or vaping. ROS: 15:57 Constitutional: Negative for fever, chills, and weight loss, Eyes: Negative for injury, taylor pain, redness, and discharge, ENT: Negative for injury, pain, and discharge, Neck: Negative for injury, pain, and swelling, Cardiovascular: Negative for chest pain, palpitations, and edema, Respiratory: Negative for shortness of breath, cough, wheezing, and pleuritic chest pain, Abdomen/GI: Negative for abdominal pain, nausea, vomiting, diarrhea, and constipation, Back: Negative for injury and pain, MS/Extremity: Negative for injury and deformity, Skin: Negative for injury, rash, and discoloration, Neuro: Negative for headache, weakness, numbness, tingling, and seizure, Psych: Negative for depression, anxiety, suicide ideation, homicidal ideation, and hallucinations, Allergy/Immunology: Negative for hives, rash, and allergies, Endocrine: Negative for neck swelling, polydipsia, polyuria, polyphagia, and marked weight changes, Hematologic/Lymphatic: Negative for swollen nodes, abnormal bleeding, and unusual bruising, 15:57 : Positive for urinary symptoms, urinary frequency, burning with urination, Exam: 15:57 Constitutional: This is a well developed, well nourished patient who is awake, alert, taylor and in no acute distress. Head/Face: Normocephalic, atraumatic. Eyes: Pupils equal round and reactive to light, extra-ocular motions intact. Lids and lashes normal. Conjunctiva and sclera are non-icteric and not injected. Cornea within normal limits. Periorbital areas with no swelling, redness, or edema. ENT: Nares patent. No nasal discharge, no septal abnormalities noted. Tympanic membranes are normal and external auditory canals are clear. Oropharynx with no redness, swelling, or masses, exudates, or evidence of obstruction, uvula midline. Mucous membranes moist. Neck: Trachea midline, no thyromegaly or masses palpated, and no cervical lymphadenopathy. Supple, full range of motion without nuchal rigidity, or vertebral point tenderness. No Meningismus. Chest/axilla: Normal chest wall appearance and motion. Nontender with no deformity. No lesions are appreciated. Cardiovascular: Regular rate and rhythm with a normal S1 and S2. No gallops, murmurs, or rubs. Normal PMI, no JVD. No pulse deficits. Respiratory: Lungs have equal breath sounds bilaterally, clear to auscultation and percussion. No rales, rhonchi or wheezes noted. No increased work of breathing, no retractions or nasal flaring. Back: No spinal tenderness. No costovertebral tenderness. Full range of motion. Skin: Warm, dry with normal turgor. Normal color with no rashes, no lesions, and no evidence of cellulitis. MS/ Extremity: Pulses equal, no cyanosis. Neurovascular intact. Full, normal range of motion., bilateral aka Neuro: Awake and alert, GCS 15, oriented to person, place, time, and situation. Cranial nerves II-XII grossly intact. Motor strength 5/5 in all extremities. Sensory grossly intact. Cerebellar exam normal. Normal gait. Psych: Awake, alert, with orientation to person, place and time. Behavior, mood, and affect are within normal limits. 15:57 Abdomen/GI: Inspection: abdomen appears normal, Bowel sounds: normal, Liver: no appreciated palpable abnormalities, Hernia: not appreciated, Vital Signs: 14:18 BP 123 / 81; Pulse 106; Resp 17; Temp 97.5; Pulse Ox 100% ; Height 5 ft. 3 in. ; Pain ll1 6/10; 14:18 Pain Scale: Adult ll1 MDM: 14:18 Medical Screening Exam initiated taylor 15:57 Differential diagnosis: strain, UTI. Data reviewed: vital signs, nurses notes, lab test taylor result(s), urinalysis. Consideration of Admission/Observation Escalation of care including admission/observation considered. I considered the following discharge prescriptions or medication management in the emergency department Medications were administered in the Emergency Department. See MAR. Test considered but Not performed: Labs: no cbc, no comp met. Historians other than the Patient: pt well informed. Care significantly affected by the following chronic conditions: Obesity. 08/21 15:13 Order name: Urinalysis w/ reflexes; Complete Time: 16:13 taylor 08/21 15:13 Order name: PREGU; Complete Time: 16:13 [facility] Administered Medications: 16:54 Drug: Rocephin (cefTRIAXone) IM 1 grams IM once Route: IM; Site: right gluteus; jb4 17:08 Follow up: Response: No adverse reaction jb4 16:54 Drug: Cefdinir PO 300 mg PO once Route: PO; jb4 17:08 Follow up: Response: No adverse reaction jb4 16:54 Drug: Phenazopyridine PO 200 mg PO once Route: PO; jb4 17:08 Follow up: Response: No adverse reaction jb4 16:54 Drug: Trimethoprim-Sulfamethoxazole PO (160 mg-800 mg (DS) 1 tablet PO once Route: PO; jb4 17:09 Follow up: Response: No adverse reaction jb4 Disposition Summary: 08/21/24 16:15 Discharge Ordered Notes: Location: Home taylor Problem: new taylor Symptoms: have improved taylor Condition: Stable taylor Diagnosis - UTI/ Urinary tract infection, site not specified taylor - Dysuria taylor Followup: taylor - With: Private Physician - When: 2 - 3 days - Reason: Recheck today's complaints, Continuance of care, Re-evaluation by your physician Discharge Instructions: - Discharge Summary Sheet taylor - Dysuria taylor - Urinary Tract Infection, Adult taylor - Urinary Tract Infection, Adult, [facility]oe[facility] Forms: - Medication Reconciliation Form taylor - Antibiotic Education taylor - Prescription Opioid Use taylor - Patient Portal Instructions taylor - Leadership Thank You Letter [facility] Prescriptions: - cefdinir 300 mg Oral capsule - take 1 capsule ORAL route every 12 hours; 14 capsule; Refills: 0, Product taylor Selection Permitted - Pyridium 200 mg Oral Tablet - take 1 tablet ORAL route every 8 hours for 3 days; 9 tablet; Refills: 0, taylor Product Selection Permitted - Bactrim DS 800-160 mg Oral tablet - take 1 tablet ORAL route every 12 hours for 5 days; 10 tablet; Refills: 0, taylor Product Selection Permitted Signatures: Dispatcher [employer] Parrish Swan MD MD cha Bryson, James RN RN jb4 Ryan Hackett RN RN ll1
[2024-08-21] MEDS ORDERED: CEFTRIAXONE 1000 MG/VIAL ONE (16:42)
[2024-08-21] MEDS ORDERED: PHENAZOPYRIDINE 100MG TAB PO ONE (16:43)
[2024-08-21] MEDS ORDERED: SMZ./TMP. 800/160 MG TABLET ONE (16:43)
[2024-08-21] MEDS ORDERED: CEFDINIR 300 MG CAP PO ONE (16:43)
[2024-08-21] MEDS ORDERED: WATER FOR INJ,STERILE 10 ML ONE (16:43)
[2024-08-22 03:06] VITALS: BP 123/81; TEMP 97.5; O2SAT 100
== END 2024-08-21 17:10 | disposition home or self-care (01) ==
LOC: ER 13:58
DX: N39.0 Urinary tract infection, site not specified (principal)
CPT/HCPCS: 81001; 81025; 96372; 99284; J0696

== ENCOUNTER 2025-06-03 19:17 | Emergency (ER) | payer BC ==
--- NOTE | 2025-06-03 22:23 | EDPHYS ---
Physician Documentation [facility] Name: Viridiana Navarrete Age: 24 yrs Sex: Female : 2000 Arrival Date: 06/03/2025 Time: 19:17 Bed IW3 Private MD: ED Physician Reyes Lyons HPI: 06/03 19:31 This 24 yrs old Female presents to ER via Unassigned with complaints of sp4 Allergic Reaction. 06/04 05:38 24-year-old female presents with acute onset of rash secondary to clindamycin. Patient sp4 reports was prescribed clindamycin by her dentist for dental infection of tooth #17. She took last dose this morning. Patient developed bilateral arm and abdominal rash. 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 - Infectious Disease History:: Denies. - Social history:: Smoking status: Patient denies any tobacco usage or history of. Patient/guardian denies using alcohol, street drugs, IV drugs. - Family history:: not pertinent. ROS: 06/04 05:39 Constitutional: Negative for fever, chills, and weight loss, positive for acute sp4 rash All other systems are negative, Exam: 05:39 Constitutional: This is a well developed, well nourished patient who is awake, alert, sp4 and in no acute distress. Head/Face: Normocephalic, atraumatic. Eyes: Pupils equal round and reactive to light, extra-ocular motions intact. Lids and lashes normal. Conjunctiva and sclera are not injected. Cornea within normal limits. Periorbital areas with no swelling, redness, or edema. ENT: Nares patent. No nasal discharge, no septal abnormalities noted. Tympanic membranes are normal and external auditory canals are clear. Oropharynx with no redness, swelling, or masses, exudates, or evidence of obstruction, uvula midline. Mucous membranes moist. Neck: Trachea midline, no thyromegaly or masses palpated, and no cervical lymphadenopathy. Supple, full range of motion without nuchal rigidity, or vertebral point tenderness. Chest/axilla: Normal chest wall appearance and motion. Nontender with no deformity. No lesions are appreciated. Cardiovascular: Regular rate and rhythm with a normal S1 and S2. No gallops, murmurs, or rubs. No pulse deficits. Respiratory: Lungs have equal breath sounds bilaterally, clear to auscultation and percussion. No rales, rhonchi or wheezes noted. No increased work of breathing, no retractions or nasal flaring. Abdomen/GI: Soft, with normal bowel sounds. No distension or tympany. No guarding or rebound. No evidence of tenderness throughout. Back: No spinal tenderness. No costovertebral tenderness. Skin: Warm, dry with normal turgor. Normal color with diffuse mild erythematous rash to bilateral arms and small amount of abdomen MS/ Extremity: Pulses equal, no cyanosis. Neurovascular intact. Full, normal range of motion. Neuro: Awake and alert, GCS 15, oriented to person, place, time, and situation. Cranial nerves II-XII grossly intact. Motor strength 5/5 in all extremities. Sensory grossly intact. Psych: Awake, alert, with orientation to person, place and time. Behavior, mood, and affect are within normal limits Vital Signs: 06/03 20:12 BP 125 / 77; Pulse 87; Resp 20; Temp 97.2; Pulse Ox 99% ; Weight 97.52 kg; Height 5 ft. bp 3 in. ; Pain 0/10; 20:12 Body Mass Index 38.09 (97.52 kg, 160.02 cm) bp 20:12 Pain Scale: Adult bp [place] Coma Score: 06/04 05:39 Eye Response: spontaneous(4). Verbal Response: oriented(5). Motor Response: obeys sp4 commands(6). Total: 15. MDM: 06/03 20:56 Medical Screening Exam initiated sp4 06/04 05:40 Differential diagnosis: bronchospasm, Mastocystosis urticaria. Data reviewed: vital sp4 signs, nurses notes. ED course: Medications were ordered and urine test was ordered but patient left before medication could be given. Will document elopement. Administered Medications: No medications were administered Disposition Summary: 06/03/25 22:22 Discharge Ordered Problem: new sp4 Symptoms: have improved sp4 Condition: Stable sp4 Diagnosis - Acute allergic reaction secondary to clindamycin, acute bilateral upper extremity sp4 maculopapular rash Followup: sp4 - With: Private Physician - When: 7 - 10 days - Reason: Recheck today's complaints Discharge Instructions: - Discharge Summary Sheet sp4 - Contact Dermatitis, [id number] sp4 Forms: - Patient Portal Instructions sp4 Prescriptions: - Benadryl 25 mg Oral capsule - take 1 capsule ORAL route every 8 hours As needed PRN itching; 50 tablet; sp4 Refills: 0, Product Selection Permitted - Prednisone 20 mg Oral Tablet - take 2 tablets ORAL route once daily for 5 days; 10 tablet; Refills: 0, Product sp4 Selection Permitted Signatures: Dispatcher [employer] Pierre Bray RN RN bp Potepalov, Sergey, MD MD sp4
--- NOTE | 2025-06-03 22:23 | ER ---
Nurse's Notes [facility] Name: Viridiana Navarrete Age: 24 yrs Sex: Female : 2000 Arrival Date: 06/03/2025 Time: 19:17 Bed IW3 Private MD: Diagnosis: Acute allergic reaction secondary to clindamycin, acute bilateral upper extremity maculopapular rash Presentation: 06/03 20:12 Chief complaint: Patient states: STARTED HAVING A RASH ON BILATERAL ARMS AFTER STARTING bp HER 2ND DOSE OF CLINDAMYCIN. THINKS SHE IS HAVING AN ALLERGIC REACTION TO IT. Coronavirus screen: At this time, the client does not indicate any symptoms associated with coronavirus-19. Ebola Screen: No symptoms or risks identified at this time. Onset: The symptoms/episode began/occurred yesterday. Anaphylaxis evaluation, no signs or symptoms of anaphylaxis were noted. Initial Sepsis Screen: Does the patient meet any 2 criteria? No. Patient's initial sepsis screen is negative. Does the patient have a suspected source of infection? No. Patient's initial sepsis screen is negative. Risk Assessment: Do you want to hurt yourself or someone else? Patient reports no desire to harm self or others. Onset of symptoms was June 02, 2025. 20:12 Method Of Arrival: Ambulatory bp 20:12 Acuity: AMBROSIO 5 bp Triage Assessment: 20:16 General: Appears in no apparent distress. comfortable, Behavior is calm, cooperative, bp appropriate for age. Pain: Denies pain. Derm: Reports itching, RASH ON BILATERAL ARMS, FACE AND BACK. 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 - Infectious Disease History:: Denies. - Social history:: Smoking status: Patient denies any tobacco usage or history of. Patient/guardian denies using alcohol, street drugs, IV drugs. - Family history:: not pertinent. Screenin:[address] [facility] ED Fall Risk Assessment (Adult) History of falling in the last 3 months, cp4 including since admission No falls in past 3 months (0 pts) Confusion or Disorientation No (0 pts) Intoxicated or Sedated No (0 pts) Impaired Gait No (0 pts) Mobility Assist Device Used No (0 pt) Altered Elimination No (0 pt) Score/Fall Risk Level 0 - 2 = Low Risk Oriented to surroundings, Maintained a safe environment, Educated pt \T\ family on fall prevention, incl call for assistance when getting out of bed, Assessed \T\ reinforced patient's understanding of fall precautions. Abuse screen: Denies threats or abuse. Nutritional screening: No deficits noted. Tuberculosis screening: No symptoms or risk factors identified. Assessment: 20:12 Reassessment: see triage assessment. 4 Vital Signs: 20:12 BP 125 / 77; Pulse 87; Resp 20; Temp 97.2; Pulse Ox 99% ; Weight 97.52 kg; Height 5 ft. bp 3 in. ; Pain 0/10; 20:12 Body Mass Index 38.09 (97.52 kg, 160.02 cm) bp 20:12 Pain Scale: Adult bp [place] Coma Score: 06/04 05:39 Eye Response: spontaneous(4). Verbal Response: oriented(5). Motor Response: obeys sp4 commands(6). Total: 15. ED Course: 06/03 19:23 Patient arrived in ED. im 19:31 Reyes Lyons MD is Attending Physician. sp4 20:15 Triage completed. bp 20:16 Arm band placed on right wrist. bp Administered Medications: No medications were administered Outcome: 22:22 Discharge ordered by . sp4 22:46 Eloped from waiting room, after seeing physician Time discovered patient gone: May [facility] 2024 at 22:35 22:48 Patient left the ED. cp4 Signatures: Pierre Valdez, RN RN Reyes Sharma MD MD sp4 Doreen Joel Tamara Demarco 4
[2025-06-03] MEDS ORDERED: FAMOTIDINE 20 MG TAB ONE (22:29)
[2025-06-03] MEDS ORDERED: DIPHENHYDRAMINE 25 MG TAB/CAP ONE (22:29)
[2025-06-03] MEDS ORDERED: predniSONE 20 MG TAB ONE (22:29)
[2025-06-03 23:05] VITALS: BP 125/77; TEMP 97.2; O2SAT 99
== END 2025-06-03 22:48 | disposition home or self-care (01) ==
LOC: ER 19:17
DX: R21 Rash and other nonspecific skin eruption (principal); Z88.3 Allergy status to other anti-infective agents
CPT/HCPCS: 99281; J7512